=== PATIENT | male | born 1945 | race Caucasian/White ===

== ENCOUNTER → 2018-03-13 09:25 | Outpatient (CLI) | payer MEDICARE, SELFPAY ==
--- NOTE | 2018-03-13 | DI.ECHO.S_ITS ---
[place] [facility]---------+ [facility] +---------+ : : [address] : : : : [id number] : : : : Phone: [phone]+ Echocardiogram Report + + :Name: MARY DELGADO Study Date: 03/13/2018 Height: 69 in : :[facility] Exam Location: IS Weight: 193 lb : : Gender: Male BSA: 2.0 m2 : :: 1945 Age: 72 yrs BP: 118/62 mmHg: :Reason For Study: Atrial Fibrillation : :Ordering Physician: Lea Haywood : :Meron Performed By: Faith Steen : :Referring: LEA CARBAJAL : + + Interpretation Summary The left ventricle is normal in size. Left ventricular systolic function is normal without focal wall motion abnormalities. The ejection fraction is estimated to be 55-60%. LVEF has not changed. Diastolic parameters suggest probable normal left ventricular diastolic function and normal filling pressures. The right ventricle is normal in size and function. Right ventricular systolic pressure is estimated to be at least 29 mmHg plus the clinically estimated CVP which cannot be estimated on this exam. The left atrium is moderately dilated. The right atrium is normal in size. There is mild aortic stenosis which has not changed since 2017. The peak aortic velocity is 2.5 m/sec. There is no other significant valvular heart disease. The ascending aorta is mild-moderately enlarged. Procedure: A two-dimensional transthoracic echocardiogram with color flow and Doppler was performed. The study quality was technically adequate. Comparison is made with the echocardiogram of 05/17/2016. The patient was in normal sinus rhythm during the exam. The patient had frequent PVCs during the exam. Left Ventricle: The left ventricle is normal in size. Left ventricular wall thickness is at the upper limits of normal. Left ventricular systolic function is normal without focal wall motion abnormalities. The ejection fraction is estimated to be 55-60%. Diastolic parameters suggest probable normal left ventricular diastolic function and normal filling pressures. Right Ventricle: The right ventricle is normal in size and function. Atria: The left atrium is moderately dilated. The right atrium is normal in size. Mitral Valve: The mitral valve is normal in structure and function. There is trace mitral regurgitation. Aortic Valve: The aortic valve is trileaflet. The aortic valve is mildly calcified. There is mild aortic stenosis. The aortic valve mean gradient is 14 mmHg. The peak aortic velocity is 2.5 m/sec. There is mild aortic regurgitation. Tricuspid Valve: The tricuspid valve is normal in structure and function. There is mild tricuspid regurgitation. Right ventricular systolic pressure is estimated to be at least 29 mmHg plus the clinically estimated CVP which cannot be estimated on this exam. Pulmonic Valve: The pulmonic valve is normal in structure and function. There is a trace or physiologic amount of pulmonic regurgitation. There is no other significant valvular heart disease. Great Vessels: The ascending aorta is mild-moderately enlarged. The inferior vena cava was not visualized. Pericardium/ Pleura There is no pericardial effusion. There is an anterior echo-free space consistent with a fat pad. There is no pleural effusion. MMode/2D Measurements & Calculations LVIDd: 5.7 cm LVOT diam: 2.1 cm LVIDs: 4.1 cm asc Aorta Diam: 4.0 cm FS: 28.5 % IVSd: 0.78 cm LVPWd: 1.2 cm LV carrington. diameter/BSA (cm/m^2): 2.8 LV sys. diameter/BSA (cm/m^2): 2.0 LA A2 area: 24.9 cm2 RA long axis: 5.0 cm LA A4 area: 27.1 cm2 RA area: 14.3 cm2 LA length (vol): 6.2 cm RA vol: 34.7 ml LA vol: 92.4 ml RA : 17.1 ml/m2 LA vol index: 45.4 ml/m2 RVD1 (basal): 4.1 cm TAPSE: 3.0 cm Doppler Measurements & Calculations Ao V2 max: 244.5 cm/sec LVOT Max Josef: 125.4 cm/sec Ao V2 mean: 176.3 cm/sec LV V1 max P.3 mmHg Ao max P.4 mmHg LV V1 VTI: 25.1 cm Ao mean P.5 mmHg ROMMEL(I,D): 1.7 cm2 Ao V2 VTI: 50.8 cm ROMMEL(V,D): 1.8 cm2 sev ratio: 0.49 ROMMEL indexed to BSA (cm^2/m^2): 0.83 AI P1/2t: 443.8 msec AI dec slope: 261.1 cm/sec2 MV E max josef: 72.1 cm/sec TR max josef: 271.2 cm/sec MV A max josef: 74.2 cm/sec TR max P.4 mmHg MV E/A: 0.97 PA V2 max: 105.3 cm/sec Med Peak E' Josef: 6.8 cm/sec PA V2 mean: 63.0 cm/sec E/E' med: 10.5 PA mean P.9 mmHg Lat Peak E' Josef: 9.2 cm/sec PA pr(Accel): -0.85 mmHg E/E' lat: 7.9 E/e' average: 9.2 MV dec time: 0.18 sec SV(OT): 85.9 ml Reading Physician:03:54 PM
== END ==
PROVIDERS: PCP Family Medicine; Visit Provider Internal Medicine Cardiovascular Disease
DX: I48.0 Paroxysmal atrial fibrillation (principal); I08.2 Rheumatic disorders of both aortic and tricuspid valves; I77.810 Thoracic aortic ectasia
CPT/HCPCS: 93306

== ENCOUNTER → 2019-06-06 09:49 | Outpatient (CLI) | payer MEDICARE, SELFPAY ==
[2019-06-06 11:34] LABS: Add Manual Diff / Slide Review NO; Basophils Absolute Auto 0 /uL (0-100); Basophils Percent Auto 0.5 % (0-2); Eosinophils Absolute Auto 200 /uL (0-450); Eosinophils Percent Auto 2.7 % (2-4); Hematocrit 40.1 % (41-53); Hemoglobin 13.8 g/dL (13.5-17.5); Lymphocytes Absolute Auto 800 /uL (1100-4500); Lymphocytes Percent Auto 9.6 % (25-40); Mean Corpuscular HGB Conc 34.4 % (30-36); Mean Corpuscular Hemoglobin 36.3 PG (26-34); Mean Corpuscular Volume 105.7 fL (80-100); Monocytes Absolute Auto 1100 /uL (0-900); Monocytes Percent Auto 12.5 % (3-14); Neutrophils Absolute Auto 6400 /uL (1500-7000); Neutrophils Percent Auto 74.7 % (50-75); Platelet Count 220 X10^3/uL (150-400); Red Cell Distribution Width 13.5 % (11.6-14.8); White Blood Cell Count 8.6 X10^3/uL (4.5-11.0)
[2019-06-06 12:10] LABS: Alanine Aminotransferase 20 IU/L (<50); Albumin Globulin Ratio 1.5 (1.0-2.8); Alkaline Phosphatase 59 U/L (38-126); Aspartate Aminotransferase 31 IU/L (17-59); BUN Creatinine Ratio 35.8 (6-22); Bilirubin Total 0.5 mg/dL (0.2-1.3); Blood Urea Nitrogen 34 mg/dL (9-20); Calcium 9.6 mg/dL (8.4-10.2); Carbon Dioxide 29 mmol/L (22-32); Chloride 102 mmol/L (98-107); Estimated Glomerular Filt Rate > 60.0 mL/min (>60); Globulin 2.6 g/dL (1.7-4.1); Glucose 97 mg/dL (80-110); HEMOLYSIS < 15 (0-50); Potassium 3.7 mmol/L (3.4-5.1); Sodium 137 mmol/L (137-145); Total Protein 6.6 g/dL (6.3-8.2)
== END ==
PROVIDERS: PCP Family Medicine; Referring Provider Physician Assistant Medical; Visit Provider Physician Assistant Medical
DX: M12.9 Arthropathy, unspecified (principal)
CPT/HCPCS: 36415; 80053; 85025

== ENCOUNTER → 2020-04-10 09:12 | Outpatient (CLI) | payer MEDICARE, SELFPAY ==
--- NOTE | 2020-04-10 09:15 | DI.ECHO.S_ITS ---
[place] [facility]---------+ Hospital +---------+ : : [address] : : : : [id number] : : : : Phone: [phone]---------+ Echocardiogram Report + + :Name: MARY DELGADO Study Date: 04/10/2020 Height: 69 in : :[facility] ReadingLocation: Weight: 196 lb : : Gender: Male BSA: 2.0 m2 : :: 1945 Age: 74 yrs BP: 149/75 mmHg: :Reason For Study: AORTIC STENOSIS : : Performed By: Moises Brown : :Referring: LEA CARBAJAL : + + Interpretation Summary The left ventricle is normal in size.The ejection fraction is estimated to be 55-60%. No significant change in the LVEF from the previous study. Diastolic parameters suggest a pseudonormalization pattern, consistent with probable elevated filling pressures. In comparison to previous study, there is a worsening of diastolic function. The right ventricle is normal in size and function. The peak aortic velocity is 2.66 m/sec. The aortic valve mean gradient is 17.9 mmHg. The calculated aortic valve area is 1.5-1.7 cm2. The peak aortic velocity on the previous exam was 2.5 m/sec. There is mild aortic stenosis. There is mild tricuspid regurgitation. Compared to the prior echo exam, there has been no change in TR severity. The right ventricular systolic pressure is estimated to be at least 24 mmHg based on an estimated right atrial pressure of 3 mm Hg. Procedure: A two-dimensional transthoracic echocardiogram with color flow and Doppler was performed. The study quality was technically adequate. Images from the parasternal window were difficult to obtain and are suboptimal in quality. Comparison is made with the echocardiogram of 03/13/18. The patient was in normal sinus rhythm during the exam. The patient had frequent PVCs during the exam. Left Ventricle: The left ventricle is normal in size. There is normal left ventricular wall thickness. There is no thrombus. The ejection fraction is estimated to be 55-60%. Septal motion is consistent with conduction abnormality. Diastolic parameters suggest a pseudonormalization pattern, consistent with probable elevated filling pressures. Right Ventricle: The right ventricle is normal in size and function. Atria: The left atrium is severely dilated. The left atrium has mildly increased in size since the prior echo exam. Right atrial size is normal. There is no Doppler evidence for an atrial septal defect. Mitral Valve: There is mild to moderate mitral annular calcification. There is a flat closure plane of the the mitral valve leaflets. There is mild mitral regurgitation. Aortic Valve: The aortic valve is not well visualized. The aortic valve is mildly calcified. The peak aortic velocity is 2.66 m/sec. The aortic valve mean gradient is 17.9 mmHg. The peak aortic velocity on the previous exam was 2.5 m/sec. The calculated aortic valve area is 1.5-1.7 cm2. There is mild aortic stenosis. There is trace aortic regurgitation. Tricuspid Valve: The tricuspid valve is normal. There is mild tricuspid regurgitation. The right ventricular systolic pressure is estimated to be at least 24 mmHg based on an estimated right atrial pressure of 3 mm Hg. Compared to the prior echo exam, there has been no change in TR severity. Pulmonic Valve: The pulmonic valve is not well visualized. There is no pulmonic valvular regurgitation. Great Vessels: The aortic root is normal size. The ascending aorta is at the upper limits of normal in size. The aortic arch is at the upper limits of normal in size. The pulmonary artery is normal size. The IVC is of normal diameter and collapses greater than 50% with a sniff. This suggests a low right atrial pressure of 3 mm Hg. Pericardium/ Pleura There is no pericardial effusion. There is no pleural effusion. MMode/2D Measurements & Calculations LVIDd: 4.3 cm LVOT diam: 2.1 cm LVIDs: 2.2 cm Ao root diam: 3.4 cm FS: 48.2 % asc Aorta Diam: 3.8 cm EPSS: 1.4 cm Ao Arch Diam (Prox Trans): 3.4 cm IVSd: 1.0 cm LVPWd: 1.00 cm LV carrington. diameter/BSA (cm/m^2): 2.1 LV sys. diameter/BSA (cm/m^2): 1.1 LA dimension: 3.6 cm RA long axis: 5.3 cm LA A2 area: 31.3 cm2 RA area: 17.4 cm2 LA A4 area: 32.5 cm2 RA vol: 48.6 ml LA length (vol): 6.3 cm RA : 23.8 ml/m2 LA vol: 136.2 ml IVC diam: 1.7 cm LA vol index: 66.5 ml/m2 TAPSE: 2.2 cm Doppler Measurements & Calculations Ao V2 max: 266.9 cm/sec LVOT Max Josef: 111.0 cm/sec Ao V2 mean: 205.1 cm/sec LV V1 max P.9 mmHg Ao max P.5 mmHg LV V1 VTI: 28.3 cm Ao mean P.9 mmHg ROMMEL(I,D): 1.7 cm2 Ao V2 VTI: 58.5 cm ROMMEL(V,D): 1.5 cm2 sev ratio: 0.48 ROMMEL indexed to BSA (cm^2/m^2): 0.85 MV E max josef: 106.7 cm/sec TR max josef: 229.4 cm/sec MV A max josef: 66.1 cm/sec TR max P.0 mmHg MV E/A: 1.6 PA V2 max: 98.5 cm/sec Med Peak E' Josef: 3.9 cm/sec PA V2 mean: 74.2 cm/sec E/E' med: 27.4 PA mean P.4 mmHg Lat Peak E' Josef: 5.6 cm/sec PA pr(Accel): 24.2 mmHg E/E' lat: 19.1 E/e' average: 23.3 MV dec time: 0.15 sec SV(LVOT): 102.1 ml Reading Physician:05:31 PM
== END ==
PROVIDERS: PCP Family Medicine; Referring Provider Internal Medicine Cardiovascular Disease; Visit Provider Internal Medicine Cardiovascular Disease
DX: I08.3 Combined rheumatic disorders of mitral, aortic and tricuspid valves (principal)
CPT/HCPCS: 93306

== ENCOUNTER → 2021-02-11 13:17 | Outpatient (CLI) | payer MEDICARE, SELFPAY ==
--- NOTE | 2021-02-11 13:28 | DI.RAD.S_ITS ---
PROCEDURE: XR CHEST 2V INDICATIONS: MODERATE PERSISTANT COUGH ASTHMA WITHOUT COMPLICATION, COUGH TECHNIQUE: 2 views of the chest were acquired. COMPARISON: [facility], CR, XR CHEST 1 VIEW, 03/12/2020, 11:32. [facility], CT, CT ANGIO CHEST, 06/07/2016, 12:55. [facility], CR, CHEST 1 VIEW, 05/03/2016, 12:56. FINDINGS: Surgical changes and devices: None. Lungs and pleura: A mild streak of opacity can be seen involving the left lung base. No pleural effusions or pneumothorax. Mediastinum: The cardiac contours are within normal limits. The aorta demonstrates calcification and tortuosity. Bones and chest wall: No suspicious bony abnormalities. Mild dextroconvex scoliotic curvature is seen. Accentuated thoracic kyphosis is seen. Age-appropriate bony degenerative changes are seen. Soft tissues appear unremarkable. IMPRESSION: Likely mild atelectasis at the left lung base. Dictated by: Jeremias Russo M.D. on 02/11/2021 at 12:42 Approved by: Jeremias Russo M.D. on 02/11/2021 at 12:44
== END ==
PROVIDERS: PCP Family Medicine; Referring Provider Registered Nurse; Visit Provider Registered Nurse
DX: J45.40 Moderate persistent asthma, uncomplicated (principal); R05.9 Cough, unspecified
CPT/HCPCS: 71046

== ENCOUNTER → 2021-07-08 09:59 | Outpatient (CLI) | payer MEDICARE, SELFPAY ==
--- NOTE | 2021-07-08 | DI.NM.S_ITS ---
PROCEDURE: NM OCTAVIO PERF SPECT REST & STR Rest and exercise myocardial perfusion SPECT with gated imaging and ejection fraction RADIOPHARMACEUTICAL: 24.2 mCi Tc-99m sestamibi IV at rest and 25.6 mCi Tc-99m sestamibi IV at peak exercise. A two day-protocol was performed. INDICATIONS: Chronic diastolic (congestive) heart failure TECHNIQUE: Radiopharmaceutical was injected at peak stress test, and also at rest. SPECT images were obtained. SPECT myocardial perfusion images were displayed in short axis, horizontal long axis, and vertical long axis views. Gated images were reviewed using Secure Software software. COMPARISON: None. CARDIAC STRESS: Patient exercised for 3 minutes and 30 seconds but couldn't keep up with the treadmill. Thus, the study was switched to lexiscan (0.4mg IV dose). Hemodynamic data: There is normal blood pressure and heart rate response to lexiscan. Symptoms: Patient had non-diagnostic chest pain during exercise. EKG: No diagnostic EKG changes of ischemia; occasional PACs and PVCs present. FINDINGS: Raw data: There is good myocardial labeling by radiotracer. No significant motion artifacts. Biif-zm-bduib ratio is 0.37 (normal is less than 0.38 for sestamibi tracer, and less than 0.50 for thallium tracer). Left ventricle function: Gated images demonstrate normal left ventricle wall thickening. No segmental wall motion abnormality. No transient ischemic dilation; TID is 0.81 (normal less than 1.3). The left ventricle resting end-diastolic volume is 121 mL. Left ventricle stress ejection fraction is 69%; normal values are above 45%. Myocardial perfusion: There is normal distribution of activity in the left and right ventricular myocardium. No fixed or reversible perfusion defects. IMPRESSION: Low risk, normal pharmaceutical nuclear stress test 1) No perfusion evidence of ischemia or infarction. 2) Normal left ventricular size, wall motion, and systolic function (EF post stress 69%). 3) No ST changes with exercise or with lexiscan. 4) Non-diagnostic chest pain with exercise. 5) Reduced exercise tolerance (PATRIA +40%). Since target heart rate was not achieved, study was switched to pharmaceutical nuclear stress test. Dictated by: Marcos Ronquillo MD on 07/09/2021 at 16:52 Approved by: Marcos Ronquillo MD on 07/09/2021 at 16:56
[2021-07-08 11:06] LABS: COVID19 -Nasal RAPID Negative (Negative)
== END ==
PROVIDERS: PCP Family Medicine; Referring Provider Internal Medicine Cardiovascular Disease; Visit Provider Internal Medicine Cardiovascular Disease
DX: I50.32 Chronic diastolic (congestive) heart failure (principal); R06.00 Dyspnea, unspecified; R07.9 Chest pain, unspecified
CPT/HCPCS: 78452; 87635; 93017; A9502; J2785

== ENCOUNTER → 2021-07-16 07:46 | Outpatient (CLI) | payer MEDICARE, SELFPAY ==
[2021-07-16 08:32] LABS: COVID19 -Nasal RAPID Negative (Negative)
== END ==
PROVIDERS: PCP Family Medicine; Referring Provider Internal Medicine; Visit Provider Internal Medicine
DX: Z01.812 Encounter for preprocedural laboratory examination (principal); Z20.822 Contact with and (suspected) exposure to COVID-19
CPT/HCPCS: 87635; C9803

== ENCOUNTER → 2021-07-16 07:48 | Outpatient (CLI) | payer MEDICARE, SELFPAY ==
--- NOTE | 2021-07-19 14:04 | PM.PFT.1 ---
Pulmonary Function Test Referral & Results Date Patient Seen: 07/16/21 Requesting provider: Lisbeth Miguel Results: The spirometry demonstrates an FVC of 3.89 L which is 101% of predicted. The FEV1 was measured at 2.44 L which is 88% of predicted. The FEV1/FVC ratio was 63 which is 87% of predicted. Following the administration of bronchodilator there was no notable change. Lung volumes show an SVC of 3.75 L which is 89% of predicted. The diffusing capacity was measured at 20.27 which is 68% of predicted. No hemoglobin value was provided, so no correction for potential anemia could be made, if appropriate. The maximum voluntary ventilation was minimally reduced Interpretation: This study demonstrates probably normal spirometry. There is a moderate reduction diffusing capacity suggesting disease at the capillary alveolar level Compared to PFTs performed in January 2017, current study shows significant decline in diffusing capacity and minimal decline in FEV1 Clinical correlation suggested
== END ==
PROVIDERS: PCP Family Medicine; Referring Provider Internal Medicine Cardiovascular Disease; Visit Provider Internal Medicine Cardiovascular Disease
DX: R06.00 Dyspnea, unspecified (principal); J98.8 Other specified respiratory disorders; A31.0 Pulmonary mycobacterial infection; Z87.891 Personal history of nicotine dependence; Z01.812 Encounter for preprocedural laboratory examination; Z20.822 Contact with and (suspected) exposure to COVID-19
CPT/HCPCS: 87635; 94060; 94726; 94729; C9803

== ENCOUNTER 2021-09-16 00:51 | Emergency (ER) | payer MEDICARE, SELFPAY ==
[2021-09-16] VITALS (8 sets, daily range): BP systolic 107–129; BP diastolic 54–63; PULSE 87–108; RESP 18–20; TEMP 38.3; O2SAT 91–95
--- NOTE | 2021-09-16 00:58 | DI.RAD.S_ITS ---
PROCEDURE: XR CHEST 1V INDICATIONS: SOB TECHNIQUE: One view of the chest was acquired. COMPARISON: [facility], CR, XR CHEST 2V, 02/11/2021, 13:24. FINDINGS: Surgical changes and devices: None. Lungs and pleura: There are patchy left basilar opacities. No pleural effusions or pneumothorax. Mediastinum: Mediastinal contours appear normal. Heart size is normal. Bones and chest wall: No suspicious bony lesions. Overlying soft tissues appear unremarkable. IMPRESSION: 1. Patchy left basilar opacities are nonspecific but suggestive of pneumonia. Dictated by: Dewayne Velazquez M.D. on 09/16/2021 at 2:14 Approved by: Dewayne Velazquez M.D. on 09/16/2021 at 2:14
[2021-09-16] MEDS: SODIUM CHLORIDE 0.9% 1,000 ML 1000 ML IV (01:08)
[2021-09-16 01:10] LABS: Add Manual Diff / Slide Review NO; Basophils Absolute Auto 0 /uL (0-100); Basophils Percent Auto 0.1 % (0-2); Eosinophils Absolute Auto 0 /uL (0-450); Hematocrit 32.3 % (41-53); Hemoglobin 10.7 g/dL (13.5-17.5); Lymphocytes Absolute Auto 300 /uL (1100-4500); Lymphocytes Percent Auto 2.7 % (25-40); Mean Corpuscular HGB Conc 33.2 % (30-36); Mean Corpuscular Hemoglobin 36.1 PG (26-34); Mean Corpuscular Volume 108.8 fL (80-100); Monocytes Absolute Auto 200 /uL (0-900); Monocytes Percent Auto 1.9 % (3-14); Neutrophils Absolute Auto 9700 /uL (1500-7000); Neutrophils Percent Auto 95.3 % (50-75); Platelet Count 199 X10^3/uL (150-400); Red Blood Cell Count 2.97 X10^6/uL (4.5-5.9); Red Cell Distribution Width 18.7 % (11.6-14.8); White Blood Cell Count 10.2 X10^3/uL (4.5-11.0)
[2021-09-16 01:15] LABS: Lactate (Lactic Acid) 3.2 mmol/L (0.7-2.1)
[2021-09-16 01:16] LABS: Alanine Aminotransferase 42 IU/L (<50); Albumin 3.5 g/dL (3.5-5.0); Albumin Globulin Ratio 1.5 (1.0-2.8); Alkaline Phosphatase 57 U/L (38-126); Aspartate Aminotransferase 46 IU/L (17-59); Bilirubin Total 0.5 mg/dL (0.2-1.3); Blood Urea Nitrogen 42 mg/dL (9-20); Calcium 9.1 mg/dL (8.4-10.2); Carbon Dioxide 25 mmol/L (22-32); Chloride 107 mmol/L (98-107); Creatine Kinase 81 U/L (55-170); Estimated Glomerular Filt Rate > 60 mL/min (>60); Globulin 2.3 g/dL (1.7-4.1); Glucose 106 mg/dL (80-110); HEMOLYSIS < 15 (0-50); Potassium 4.3 mmol/L (3.4-5.1); Sodium 138 mmol/L (137-145); Total Protein 5.8 g/dL (6.3-8.2)
[2021-09-16 01:27] LABS: NT-proBNP (BNP-Adult 18+) 986 pg/mL (<450); Troponin I 0.046 ng/mL (0.01-0.034)
[2021-09-16 01:32] LABS: COVID19 -Nasal RAPID Negative (Negative)
[2021-09-16 01:37] LABS: D Dimer 235 ng/mL (<230)
[2021-09-16 02:17] LABS: C-Reactive Protein Quant 4.1 mg/dL (<1.0)
[2021-09-16 03:04] LABS: Reflexed Lactate in 2 Hours Y
--- NOTE | 2021-09-16 03:11 | ED_ITS ---
HPI - Sepsis General Chief Complaint: Upper Respiratory Symptoms Mode of arrival: EMS Source: patient and EMS Limitations: no limitations Evaluation Sepsis Screen: No Definite Risk Sepsis Infection Criteria Present: None Narrative: 76-year-old male with history of paroxysmal atrial fibrillation on Pradaxa and diltiazem as well as chronic pulmonary problems managed by pulmonology (Dr. Kay Hamilton at [facility]) presents by EMS with a chief complaint of shortness of breath along with fever, shaking chills and cough productive of yellow sputum for the past few days. He denies any nausea or vomiting. Denies any chest pain but has felt palpitations and shortness of breath, certainly with exertion. He denies orthopnea, weight gain or lower extremity edema. He denies any abdominal pain, constipation or diarrhea. He states that he had been seen by his rooming house keeper in June and had a bronchoscopy with diagnosis of likely bacterial pneumonia and had been placed on Bactrim DS x5 days Review of Systems Review of Systems Narrative: GENERAL: Denies chills, fatigue, malaise, fever, sweats. HEENT: Denies sinus pain, ear pain, sore throat, difficulty swallowing, dizziness. RESPIRATORY: See HPI CARDIOVASCULAR: See HPI GASTROINTESTINAL: Denies nausea, vomiting, abdominal pain, diarrhea, constipation, melena. : Denies dysuria, frequency, incontinence, hematuria, urinary retention. MUSCULOSKELETAL: denies weakness, joint pain, or bony pain SKIN: Denies rash, skin lesions, or other NEUROLOGIC: Denies weakness, headache, numbness, change in speech, confusion, seizures, incoordination. PSYCHIATRIC: No concerning psychosocial issues. 12 point review of systems is negative except for those stated above Exam Narrative Exam Narrative: GENERAL: [76] year old patient appears stated age. Well-developed patient, in mild distress. HEAD: Atraumatic. Normocephalic. EYES: Pupils equal round and reactive. Extraocular motions intact. No scleral icterus. No injection or drainage. ENT: Nose without bleeding, purulent drainage. Throat without erythema, tons illar hypertrophy or exudate. Airway patent. NECK: Trachea midline. Non tender CARDIOVASCULAR: Tachycardic and irregular rhythm without murmurs, gallops, or rubs. RESPIRATORY: Faint crackles in bilateral bases, no significant work of breathing, no use of accessory muscles GASTROINTESTINAL: Abdomen soft, non-tender, nondistended. EXTREMITIES: No edema or joint tenderness. BACK: Nontender without deformity or crepitance. No flank tenderness. NEURO: AOx3. SKIN: No rash or erythema of visible areas Initial Vital Signs Initial Vital Signs: Vital Signs Pulse Rate 108 H 09/16/21 01:00 Respiratory Rate 19 09/16/21 01:00 Blood Pressure 129/63 09/16/21 01:00 Pulse Oximetry 91 09/16/21 01:00 Oxygen Delivery Method 09/16/21 01:00 Course Orders Ordered: ED Orders 09/16/21 00:58 Chest [XR chest 1V] Stat 09/16/21 01:04 C-Reactive Protein Quant Stat COVID19 -Nasal RAPID/Pre-Proc Stat Complete Blood Count AUTO DIFF Stat Comprehensive Metabolic Panel Stat Lactate (Lactic Acid) Stat Magnesium Stat NT-proBNP (BNP-Adult 18+) Stat Procalcitonin Stat Troponin & CK Cardiac Panel Stat 09/16/21 01:14 D Dimer Stat 09/16/21 01:20 Blood Culture Stat Discontinued Medications Acetaminophen (Acetaminophen 325 Mg Tablet) 975 mg PO NOW ONE Stop: 09/16/21 04:02 Last Admin: 09/16/21 04:07 Dose: 975 mg Documented By: DAVID Sodium Chloride (Normal Saline 0.9%) 1,000 mls @ 1,000 mls/hr IV BOLUS ONE Stop: 09/16/21 01:55 Last Infusion: 09/16/21 02:11 Dose: 0 mls/hr Documented By: Admin: 09/16/21 01:08 Dose: 1,000 mls/hr Documented By: DAVID Ceftriaxone Sodium 2,000 mg/ (Sodium Chloride) 100 mls @ 200 mls/hr IV NOW ONE Stop: 09/16/21 03:13 Last Infusion: 09/16/21 04:37 Dose: 0 mls/hr Documented By: Admin: 09/16/21 03:34 Dose: 200 mls/hr Documented By: DAVID Reevaluation(s) Reevaluation #1: Patient with significant improvement after above-stated therapies, heart rate down into the 90s, no need for supplemental oxygen, Consultations Consultation #1: Discussed with patient's rooming house keeper, she is happy with plan to treat for community acquired pneumonia and has no request for any significantly altered plan given his history. Vital Signs Vital signs: Vital Signs - 8 hr 08/04/22 01:00 09/16/21 01:30 09/16/21 02:47 Temperature Pulse Rate 108 H 100 H 96 H Respiratory Rate 19 18 20 Blood Pressure 129/63 Pulse Oximetry 91 94 95 Oxygen Delivery Method Room Air Room Air Room Air 09/16/21 02:30 09/16/21 02:40 09/16/21 02:40 Temperature 101.0 F H Pulse Rate 94 H 93 H Respiratory Rate 20 18 Blood Pressure 107/54 L 107/54 L Pulse Oximetry 95 94 Oxygen Delivery Method Room Air 09/16/21 03:00 09/16/21 03:30 09/16/21 04:00 Temperature Pulse Rate 90 87 87 Respiratory Rate 20 20 18 Blood Pressure Pulse Oximetry 95 95 94 Oxygen Delivery Method Sepsis Guideline Criteria Level 1 - Infection Sepsis Infection Criteria Present: None Treatment Initiated Antibiotics:: IV antimicrobials will be initiated as soon as possible after recognition of sepsis state and within one hour for both sepsis and septic shock. MDM - Sepsis Lab Data Result diagrams: 09/16/21 01:04 09/16/21 01:04 Labs: Lab Results 09/16/21 09/16/21 09/16/21 Range/Units 01:04 01:04 01:04 WBC 10.2 (4.5-11.0) X10^3/uL RBC 2.97 L (4.5-5.9) X10^6/uL Hgb 10.7 L (13.5-17.5) g/dL Hct 32.3 L (41-53) % MCV 108.8 H (80-100) fL MCH 36.1 H (26-34) PG MCHC 33.2 (30-36) % RDW 18.7 H (11.6-14.8) % Plt Count 199 (150-400) X10^3/uL Neut % (Auto) 95.3 H (50-75) % Lymph % (Auto) 2.7 L (25-40) % Kent % (Auto) 1.9 L (3-14) % Eos % (Auto) 0.0 L (2-4) % Baso % (Auto) 0.1 (0-2) % Neut # (Auto) 9700 H (5506-7871) /uL Lymph # (Auto) 300 L (1542-6565) /uL Kent # (Auto) 200 (0-900) /uL Eos # (Auto) 0 (0-450) /uL Baso # (Auto) 0 (0-100) /uL D-Dimer (<230) ng/mL Sodium 138 (137-145) mmol/L Potassium 4.3 (3.4-5.1) mmol/L Chloride 107 (98-107) mmol/L Carbon Dioxide 25 (22-32) mmol/L BUN 42 H (9-20) mg/dL Creatinine 1.05 (0.66-1.25) mg/dL Estimated GFR > 60 (>60) mL/min BUN/Creatinine Ratio 40.0 H (6-22) Glucose 106 (80-110) mg/dL Lactate 3.2 H (0.7-2.1) mmol/L Calcium 9.1 (8.4-10.2) mg/dL Magnesium 2.0 (1.6-2.3) mg/dL Total Bilirubin 0.5 (0.2-1.3) mg/dL AST 46 (17-59) IU/L ALT 42 (<50) IU/L Alkaline Phosphatase 57 (38-126) U/L Total Creatine Kinase 81 (55-170) U/L CK-MB (CK-2) TNP CK-MB (CK-2) Rel Index TNP Troponin I 0.046 H (0.01-0.034) ng/mL C-Reactive Protein 4.1 H (<1.0) mg/dL NT-Pro-B Natriuret Pep 986 H (<450) pg/mL Total Protein 5.8 L (6.3-8.2) g/dL Albumin 3.5 (3.5-5.0) g/dL Globulin 2.3 (1.7-4.1) g/dL Albumin/Globulin Ratio 1.5 (1.0-2.8) Procalcitonin (<0.5) ng/mL SARS-CoV-2 (PCR) (Negative) 09/16/21 09/16/21 09/16/21 Range/Units 01:04 01:04 01:14 WBC (4.5-11.0) X10^3/uL RBC (4.5-5.9) X10^6/uL Hgb (13.5-17.5) g/dL Hct (41-53) % MCV (80-100) fL MCH (26-34) PG MCHC (30-36) % RDW (11.6-14.8) % Plt Count (150-400) X10^3/uL Neut % (Auto) (50-75) % Lymph % (Auto) (25-40) % Kent % (Auto) (3-14) % Eos % (Auto) (2-4) % Baso % (Auto) (0-2) % Neut # (Auto) (2373-7913) /uL Lymph # (Auto) (2763-4722) /uL Kent # (Auto) (0-900) /uL Eos # (Auto) (0-450) /uL Baso # (Auto) (0-100) /uL D-Dimer 235 H (<230) ng/mL Sodium (137-145) mmol/L Potassium (3.4-5.1) mmol/L Chloride (98-107) mmol/L Carbon Dioxide (22-32) mmol/L BUN (9-20) mg/dL Creatinine (0.66-1.25) mg/dL Estimated GFR (>60) mL/min BUN/Creatinine Ratio (6-22) Glucose (80-110) mg/dL Lactate (0.7-2.1) mmol/L Calcium (8.4-10.2) mg/dL Magnesium (1.6-2.3) mg/dL Total Bilirubin (0.2-1.3) mg/dL AST (17-59) IU/L ALT (<50) IU/L Alkaline Phosphatase (38-126) U/L Total Creatine Kinase (55-170) U/L CK-MB (CK-2) CK-MB (CK-2) Rel Index Troponin I (0.01-0.034) ng/mL C-Reactive Protein (<1.0) mg/dL NT-Pro-B Natriuret Pep (<450) pg/mL Total Protein (6.3-8.2) g/dL Albumin (3.5-5.0) g/dL Globulin (1.7-4.1) g/dL Albumin/Globulin Ratio (1.0-2.8) Procalcitonin 0.20 (<0.5) ng/mL SARS-CoV-2 (PCR) Negative (Negative) 09/16/21 Range/Units 03:00 WBC (4.5-11.0) X10^3/uL RBC (4.5-5.9) X10^6/uL Hgb (13.5-17.5) g/dL Hct (41-53) % MCV (80-100) fL MCH (26-34) PG MCHC (30-36) % RDW (11.6-14.8) % Plt Count (150-400) X10^3/uL Neut % (Auto) (50-75) % Lymph % (Auto) (25-40) % Kent % (Auto) (3-14) % Eos % (Auto) (2-4) % Baso % (Auto) (0-2) % Neut # (Auto) (8262-9229) /uL Lymph # (Auto) (7924-5049) /uL Kent # (Auto) (0-900) /uL Eos # (Auto) (0-450) /uL Baso # (Auto) (0-100) /uL D-Dimer (<230) ng/mL Sodium (137-145) mmol/L Potassium (3.4-5.1) mmol/L Chloride (98-107) mmol/L Carbon Dioxide (22-32) mmol/L BUN (9-20) mg/dL Creatinine (0.66-1.25) mg/dL Estimated GFR (>60) mL/min BUN/Creatinine Ratio (6-22) Glucose (80-110) mg/dL Lactate 1.5 (0.7-2.1) mmol/L Calcium (8.4-10.2) mg/dL Magnesium (1.6-2.3) mg/dL Total Bilirubin (0.2-1.3) mg/dL AST (17-59) IU/L ALT (<50) IU/L Alkaline Phosphatase (38-126) U/L Total Creatine Kinase (55-170) U/L CK-MB (CK-2) CK-MB (CK-2) Rel Index Troponin I (0.01-0.034) ng/mL C-Reactive Protein (<1.0) mg/dL NT-Pro-B Natriuret Pep (<450) pg/mL Total Protein (6.3-8.2) g/dL Albumin (3.5-5.0) g/dL Globulin (1.7-4.1) g/dL Albumin/Globulin Ratio (1.0-2.8) Procalcitonin (<0.5) ng/mL SARS-CoV-2 (PCR) (Negative) Imaging Data Chest x-ray: Radiologist's Impression: ? Chart Viewer Diagnostics Subcategory All Activity ??:?? All Time ??:?? All Subcategories Filter Laboratory Imaging Microbiology Pathology Blood Bank Tests Cardiovascular Other Specialty DATE TYPE STATUS REF RANGE/AUTHOR Hx Today 00:58 Chest X-Ray Signed Dewayne Velazquez 07/16/21 10:48 PFT Result ? 07/08/21 00:00 Myocardial Perfusion Scan Nuc Med Signed Marcos Ronquillo 02/11/21 13:28 Chest X-Ray Signed Jeremias Russo 04/10/20 09:15 Echocardiogram Ultrasound Signed Lisbeth Miguel 03/13/18 00:00 Echocardiogram Ultrasound Signed Billy Christian William L ED 76, M?1945 MRN#? [id number] REG ER,?Main ED??R06?? 82.554kg ? Upper Respiratory Symptoms Acc#? [id number] Resus Status Not Ordered No Hx Avail Special Indicators No Data to Display Home Meds Not Confirmed Prescription Monitoring Program MEDICATIONS (INSTRUCTIONS) LAST TAKEN Active ??dabigatran etexilate [Pradaxa] ??150 [id number] days#0 caps ??diltiazem HCl ??120 [id number] days#0 tabs Allergies Beta-Blockers (Beta-Adrenergic Bloc (BETA-BLOCKERS (BETA-ADRENERGIC BLOC) levofloxacin (LEVOFLOXACIN) Problems ? ONSET PVCs (premature ventricular contractions) Atypical chest pain Palpitations Atrial fibrillation with rapid ventricular response Vital Signs Today 02:47 Pulse 96?H Resp 20? O2 Sat 95? Delivery Room Air? Diagnostics Reports Jonathan Villegas??76??M??1945 ? Allergy/Adv: Beta-Blockers (Beta-Adrenergic Bloc, levofloxacin (More??) Close Chest X-Ray (Signed) Dewayne Velazquez - 09/16/21 PFT Result 07/16/21 Myocardial Perfusion Scan Nuc Med (Signed) Marcos Ronquillo - 07/08/21 Chest X-Ray (Signed) Jeremias Russo - 02/11/21 Echocardiogram Ultrasound (Signed) Lisbeth Miguel - 04/10/20 Echocardiogram Ultrasound (Signed) Billy Christian - 03/13/18 Launch?Image [address] [address] XRay Report Signed Patient: Jonathan Villegas MR#: [id number] : 1945 Acct:[id number] Age/Sex: 76 / M Date of Service: 09/16/21 Loc: ED Accession Number: [id number] ?? Procedure: XR chest 1V Ordering Provider: Dave Bacbock D.O. PROCEDURE:? XR CHEST 1V ? INDICATIONS:? SOB ? TECHNIQUE:? One view of the chest was acquired.? ? COMPARISON:? [facility], CR, XR CHEST 2V, 02/11/2021, 13:24. ? FINDINGS:? ? Surgical changes and devices:? None.? ? Lungs and pleura:? There are patchy left basilar opacities.? No pleural effusions or pneumothorax.? ? Mediastinum:? Mediastinal contours appear normal.? Heart size is normal.? ? Bones and chest wall:? No suspicious bony lesions.? Overlying soft tissues appear unremarkable.? ? IMPRESSION:? ? 1. Patchy left basilar opacities are nonspecific but suggestive of pneumonia. ? ? Dictated by: Dewayne Velazquez M.D. on 09/16/2021 at 2:14 ? ? Approved by: Dewayne Velazquez M.D. on 09/16/2021 at 2:14 ? Discharge Plan Departure Patient Disposition: Home Clinical Impression: Community acquired pneumonia Instructions: DI for Pneumonia -- Adult Activity Restrictions/Additional Instructions: *You have been diagnosed with [community-acquired pneumonia] *What to do: *Please continue to take your regular medications as directed. [ x] New medication prescriptions sent to your pharmacy: [ [facility]] [ ] New medication written as a paper prescription [ ] No new medications given *Please follow up with your primary care provider in 2-3 days, call for an appointment. Let them know you were seen in the Emergency Department and that we ask that you be seen in follow up. We will electronically transmit a record of today's note if your PCP is in our system *If you do not have a primary care provider please contact the [facility] Resource line at [phone]. They will ask some questions about your medical history and help get you set up with a doctor in the community. *Return to Emergency Department if you should have any new, worsening or concerning symptoms, such as [fever greater than 101 F, shaking chills, worsening pain, persistent vomiting or other bothersome symptoms] Prescriptions: New amoxicillin 500 mg capsule 1,000 mg PO Q8H 5 Days Qty: 30 0RF No Action diltiazem HCl 120 MG capsule,extended release 24hr 120 mg PO QDAY 30 Days Qty: 0 0RF dabigatran etexilate [Pradaxa] 150 MG capsule 150 mg PO BID 30 Days Qty: 0 0RF Referrals: Ilya Liang MD [Primary Care Provider] -
[2021-09-16 03:21] LABS: Lactate 2HR (Lactic Acid Rflx) 1.5 mmol/L (0.7-2.1)
[2021-09-16] MEDS: cefTRIAXone 2,000 MG in SODIUM CHLORIDE 0.9% 100 ML 200 MG IV (03:34)
[2021-09-16] MEDS: ACETAMINOPHEN 325 MG TABLET 975 MG PO (04:07)
== END 2021-09-16 05:00 | disposition home or self-care (01) ==
PROVIDERS: Emergency Provider Emergency Medicine; PCP Family Medicine
DX: J18.9 Pneumonia, unspecified organism (principal); R50.9 Fever, unspecified; Z20.822 Contact with and (suspected) exposure to COVID-19
CPT/HCPCS: 36415; 71045; 80053; 82550; 83605; 83735; 83880; 84145; 84484; 85025; 85379; 86140; 87040; 87635; 96361; 96365; 99284; C9803; J0696

== ENCOUNTER 2023-05-19 18:23 | Emergency (ER) | payer MEDICARE, SELFPAY ==
[2023-05-19] VITALS (18 sets, daily range): BP systolic 87–125; BP diastolic 51–67; PULSE 63–80; RESP 13–29; TEMP 36.8; O2SAT 93–97; BMI 29.6
--- NOTE | 2023-05-19 18:36 | DI.RAD.S_ITS ---
PROCEDURE: XR CHEST 1V INDICATIONS: syncope TECHNIQUE: One view of the chest was acquired. COMPARISON: [facility], CT, CT CHEST WITH CONTRAST, 05/15/2023, 20:45. , CR, XR CHEST 1V, 09/16/2021, 1:34. FINDINGS: Surgical changes and devices: None. Lungs and pleura: Lungs are clear. No pleural effusions or pneumothorax. Mediastinum: Mediastinal contours appear normal. 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 Heart size is normal. Bones and chest wall: No suspicious bony lesions. Overlying soft tissues appear unremarkable. IMPRESSION: No acute cardiopulmonary abnormality is seen. Dictated by: Uday aPcheco M.D. on 05/19/2023 at 19:03 Approved by: Uday Pacheco M.D. on 05/19/2023 at 19:04
--- NOTE | 2023-05-19 18:37 | ED.SYNCOPE ---
HPI - Syncope General Chief Complaint: Syncope Stated Complaint: Syncope Time Seen by Provider: 05/19/23 18:26 Source: patient and EMS Mode of arrival: EMS Limitations: no limitations History of Present Illness HPI narrative: 78-year-old male with history of paroxysmal atrial fibrillation on Tikosyn and Eliquis, history of aortic stenosis status post TAVR presents by EMS from home for multiple syncopal episodes. Patient discharged less than 24 hours from [facility] for shortness of breath. He was found to have very mildly elevated troponins and volume overload. Patient had his medications changed from diltiazem 242 metoprolol succinate 100 mg b.i.d. and started on lasix. This afternoon patient felt very shaky and seemed to have multiple syncopal episodes, especially when he changed positions. EMS noted that when they arrived patient had BP 70s/50s. They administered 250 cc of IV fluids and transported him to the emergency department. Related Data Previous Rx's Medication Instructions Recorded dabigatran etexilate 150 mg 150 mg PO BID 30 days #0 caps 05/03/16 capsule (Pradaxa) diltiazem HCl 120 mg 120 mg PO QDAY 30 days #0 tabs 05/03/16 capsule,extended release 24 hr Allergies Allergy/AdvReac Type Severity Reaction Status Date / Time levofloxacin [LEVOFLOXACIN] Allergy Severe Rash Verified 05/19/23 19:40 Beta-Blockers Allergy Intermediate Verified 05/19/23 19:40 (Beta-Adrenergic Bloc [BETA-BLOCKERS (BETA-ADRENERGIC BLOC] midazolam [From Versed] Allergy Intermediate Confusion Verified 05/19/23 19:39 Review of Systems Review of Systems Narrative: see HPI Patient History Social History Smoking Status: Former smoker Smoking Status: Former smoker alcohol intake frequency: a few times a month Substance Use Type: marijuana Exam Initial Vital Signs Initial Vital Signs: Vital Signs Temperature 98.2 F 05/19/23 18:31 Pulse Rate 80 05/19/23 18:31 Respiratory Rate 18 05/19/23 18:31 Blood Pressure 106/59 L 05/19/23 18:31 Pulse Oximetry 95 05/19/23 18:31 Oxygen Delivery Method Room Air 05/19/23 18:31 Const: Awake, alert, fatigued, nontoxic appearance Cardiac: regular rate, regular rhythm RESP: unlabored, clear bilaterally, no wheezing GI: Soft, nontender, nondistended, no rebound, no guarding MSK: Atraumatic, full range of motion, no edema Skin: Warm, Dry, intact, no rashes Neuro: AO x3, CN II-XII grossly intact, moves all extremities Course Orders Ordered: Discontinued Medications Sodium Chloride (Normal Saline 0.9%) 500 mls @ 1,000 mls/hr IV BOLUS ONE Stop: 05/19/23 19:56 Last Infusion: 05/19/23 19:35 Dose: Infused Documented By: Admin: 05/19/23 19:00 Dose: 1,000 mls/hr Documented By: ASH Vital Signs Vital signs: Vital Signs - 8 hr 05/19/23 18:31 05/19/23 18:34 05/19/23 19:00 Temperature 98.2 F Pulse Rate 80 71 Pulse Rate [Orthostatic Lying] Pulse Rate [Orthostatic Sitting] Pulse Rate [Orthostatic Standing] Respiratory Rate 18 15 Blood Pressure 106/59 L 97/58 L Blood Pressure [Orthostatic Lying] Blood Pressure [Orthostatic Sitting] Blood Pressure [Orthostatic Standing] Pulse Oximetry 95 95 Oxygen Delivery Method Room Air Room Air 05/19/23 19:00 05/19/23 19:19 05/19/23 19:19 Temperature Pulse Rate 71 69 Pulse Rate [Orthostatic Lying] Pulse Rate [Orthostatic Sitting] Pulse Rate [Orthostatic Standing] Respiratory Rate 14 15 Blood Pressure 98/62 Blood Pressure [Orthostatic Lying] Blood Pressure [Orthostatic Sitting] Blood Pressure [Orthostatic Standing] Pulse Oximetry 93 93 Oxygen Delivery Method 05/19/23 19:21 05/19/23 19:21 05/19/23 19:25 Temperature Pulse Rate 70 Pulse Rate [Orthostatic Lying] 69 Pulse Rate [Orthostatic Sitting] 70 Pulse Rate [Orthostatic Standing] 79 Respiratory Rate 15 Blood Pressure 99/62 Blood Pressure [Orthostatic Lying] 99/62 Blood Pressure [Orthostatic Sitting] 106/64 Blood Pressure [Orthostatic Standing] 87/51 L Pulse Oximetry 94 Oxygen Delivery Method 05/19/23 19:25 05/19/23 19:25 05/19/23 19:26 Temperature Pulse Rate 71 80 Pulse Rate [Orthostatic Lying] Pulse Rate [Orthostatic Sitting] Pulse Rate [Orthostatic Standing] Respiratory Rate 21 20 Blood Pressure 106/64 Blood Pressure [Orthostatic Lying] Blood Pressure [Orthostatic Sitting] Blood Pressure [Orthostatic Standing] Pulse Oximetry 94 95 Oxygen Delivery Method 05/19/23 19:26 05/19/23 19:30 05/19/23 19:30 Temperature Pulse Rate 65 Pulse Rate [Orthostatic Lying] Pulse Rate [Orthostatic Sitting] Pulse Rate [Orthostatic Standing] Respiratory Rate 24 Blood Pressure 87/51 L 121/67 Blood Pressure [Orthostatic Lying] Blood Pressure [Orthostatic Sitting] Blood Pressure [Orthostatic Standing] Pulse Oximetry 96 Oxygen Delivery Method 05/19/23 20:00 05/19/23 20:00 05/19/23 20:30 Temperature Pulse Rate 66 Pulse Rate [Orthostatic Lying] Pulse Rate [Orthostatic Sitting] Pulse Rate [Orthostatic Standing] Respiratory Rate Blood Pressure 101/60 104/62 Blood Pressure [Orthostatic Lying] Blood Pressure [Orthostatic Sitting] Blood Pressure [Orthostatic Standing] Pulse Oximetry 94 Oxygen Delivery Method Room Air 05/19/23 20:30 05/19/23 21:00 05/19/23 21:00 Temperature Pulse Rate 64 67 Pulse Rate [Orthostatic Lying] Pulse Rate [Orthostatic Sitting] Pulse Rate [Orthostatic Standing] Respiratory Rate Blood Pressure 111/66 Blood Pressure [Orthostatic Lying] Blood Pressure [Orthostatic Sitting] Blood Pressure [Orthostatic Standing] Pulse Oximetry 93 96 Oxygen Delivery Method Room Air Room Air 05/19/23 21:19 05/19/23 21:19 05/19/23 21:21 Temperature Pulse Rate 71 Pulse Rate [Orthostatic Lying] Pulse Rate [Orthostatic Sitting] Pulse Rate [Orthostatic Standing] Respiratory Rate Blood Pressure 109/65 104/64 Blood Pressure [Orthostatic Lying] Blood Pressure [Orthostatic Sitting] Blood Pressure [Orthostatic Standing] Pulse Oximetry 96 Oxygen Delivery Method 05/19/23 21:21 05/19/23 21:23 05/19/23 21:23 Temperature Pulse Rate 74 79 Pulse Rate [Orthostatic Lying] Pulse Rate [Orthostatic Sitting] Pulse Rate [Orthostatic Standing] Respiratory Rate 17 29 H Blood Pressure 94/57 L Blood Pressure [Orthostatic Lying] Blood Pressure [Orthostatic Sitting] Blood Pressure [Orthostatic Standing] Pulse Oximetry 93 Oxygen Delivery Method 05/19/23 21:26 05/19/23 21:30 05/19/23 21:30 Temperature Pulse Rate 67 Pulse Rate [Orthostatic Lying] 70 Pulse Rate [Orthostatic Sitting] 78 Pulse Rate [Orthostatic Standing] 78 Respiratory Rate Blood Pressure 125/61 Blood Pressure [Orthostatic Lying] 109/64 Blood Pressure [Orthostatic Sitting] 104/64 Blood Pressure [Orthostatic Standing] 94/57 L Pulse Oximetry 95 Oxygen Delivery Method Room Air 05/19/23 22:00 05/19/23 22:00 05/19/23 22:30 Temperature Pulse Rate 66 Pulse Rate [Orthostatic Lying] Pulse Rate [Orthostatic Sitting] Pulse Rate [Orthostatic Standing] Respiratory Rate 13 Blood Pressure 111/66 108/66 Blood Pressure [Orthostatic Lying] Blood Pressure [Orthostatic Sitting] Blood Pressure [Orthostatic Standing] Pulse Oximetry 97 Oxygen Delivery Method Room Air 05/19/23 22:30 Temperature Pulse Rate 63 Pulse Rate [Orthostatic Lying] Pulse Rate [Orthostatic Sitting] Pulse Rate [Orthostatic Standing] Respiratory Rate 13 Blood Pressure Blood Pressure [Orthostatic Lying] Blood Pressure [Orthostatic Sitting] Blood Pressure [Orthostatic Standing] Pulse Oximetry 94 Oxygen Delivery Method Room Air MDM - Syncope Differential Diagnosis Differential diagnosis: Likely syncope due to orthostatic hypotension, vasovagal syncope and dehydration Lab Data 05/19/23 18:30 05/19/23 18:30 Labs: Lab Results 05/19/23 05/19/23 Range/Units 18:30 20:38 WBC 11.2 H (4.5-11.0) X10^3/uL RBC 3.36 L (4.5-5.9) X10^6/uL Hgb 11.5 L (13.5-17.5) g/dL Hct 34.2 L (41-53) % MCV 101.7 H (80-100) fL MCH 34.3 H (26-34) PG MCHC 33.7 (30-36) % RDW 15.3 H (11.6-14.8) % Plt Count 154 (150-400) X10^3/uL Neut % (Auto) 87.3 H (50-75) % Lymph % (Auto) 7.3 L (25-40) % [place] % (Auto) 5.1 (3-14) % Eos % (Auto) 0.0 L (2-4) % Baso % (Auto) 0.3 (0-2) % Neut # (Auto) 9800 H (3294-3598) /uL Lymph # (Auto) 800 L (0229-0422) /uL [place] # (Auto) 600 (0-900) /uL Eos # (Auto) 0 (0-450) /uL Baso # (Auto) 0 (0-100) /uL RBC Morphology See below Polychromasia 1+ H Anisocytosis 1+ H Microcytosis 1+ H Macrocytosis 1+ H Rouleaux 1+ H PT 13.9 H (9.4-12.5) SECONDS INR 1.2 (0.9-1.3) Sodium 133 L (137-145) mmol/L Potassium 5.1 (3.4-5.1) mmol/L Chloride 104 (98-107) mmol/L Carbon Dioxide 20 L (22-32) mmol/L BUN 64 H (9-20) mg/dL Creatinine 1.62 H (0.66-1.25) mg/dL Estimated GFR 43 L (>60) mL/min BUN/Creatinine Ratio 39.5 H (6-22) Glucose 107 (80-110) mg/dL Calcium 9.1 (8.4-10.2) mg/dL Total Bilirubin 0.9 (0.2-1.3) mg/dL AST 95 H (17-59) IU/L ALT 87 H (<50) IU/L Alkaline Phosphatase 60 (38-126) U/L Total Creatine Kinase 77 (55-170) U/L Troponin I 0.067 H 0.050 H (0.01-0.034) ng/mL NT-Pro-B Natriuret Pep 1410 H (<450) pg/mL Total Protein 7.0 (6.3-8.2) g/dL Albumin 3.7 (3.5-5.0) g/dL Globulin 3.3 (1.7-4.1) g/dL Albumin/Globulin Ratio 1.1 (1.0-2.8) Imaging Data Chest x-ray: Radiologist's Impression: PROCEDURE: XR CHEST 1V INDICATIONS: syncope TECHNIQUE: One view of the chest was acquired. COMPARISON: [facility], CT, CT CHEST WITH CONTRAST, 05/15/2023, 20:45. [facility], CR, XR CHEST 1V, 09/16/2021, 1:34. FINDINGS: Surgical changes and devices: None. Lungs and pleura: Lungs are clear. No pleural effusions or pneumothorax. Mediastinum: Mediastinal contours appear normal. 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 Heart size is normal. Bones and chest wall: No suspicious bony lesions. Overlying soft tissues appear unremarkable. IMPRESSION: No acute cardiopulmonary abnormality is seen. Dictated by: Uday Pacheco M.D. on 05/19/2023 at 19:03 Approved by: Uday Pacheco M.D. on 05/19/2023 at 19:04 MDM Narrative Medical decision making narrative: Multiple syncopal versus near syncopal episodes after being discharged from [facility] barely 24 hours ago. at bedside is a retired pharmacist who mentions that the patient has had numerous medication changes within the last several days including stopping diltiazem and adding metoprolol, stopping spironolactone and adding Lasix, and adding losartan. Patient states that he was told that he had a ?mild heart attack?, but then also states that he had a clean angiogram 1 year ago. We will pull records from [facility] for review. Of note, patient is very orthostatic with dizziness in switching positions. Suspect that polypharmacy and maybe some hypovolemia may be contributing to patient's presentation Laboratory work is reviewed, hemoglobin 11.5, platelets 154, sodium 133, potassium 5.1, creatinine 1.62, troponin 0.067, BNP 1410. When compared to [facility] values from 24 hours ago these are not significantly changed. Patient appears to have mild troponin leak that is stable between today and his previous hospital stay. Patient received small bolus of IV fluids and was able to stand and ambulate with a walker without difficulty, which is his baseline. Patient counseled to decrease his metoprolol dose and to follow up with his calender tender. With the Lasix is also important that patient monitor his salt and fluid intake. Strict ED return precautions discussed with both patient and at bedside. Discharge Plan Departure Patient Disposition: Home Clinical Impression: Orthostatic dizziness Instructions: DI for Orthostatic Hypotension Activity Restrictions/Additional Instructions: I recommend decreasing her metoprolol dose from 100 mg twice daily to 50 mg twice daily. Monitor your fluid intake and salt intake. Please return if you do not notice an improvement in your symptoms despite medication changes. Follow up with your heart doctor and primary care doctor. Prescriptions: No Action diltiazem HCl 120 MG capsule,extended release 24hr 120 mg PO QDAY 30 Days Qty: 0 0RF dabigatran etexilate [Pradaxa] 150 MG capsule 150 mg PO BID 30 Days Qty: 0 0RF Referrals: Ilya Liang MD [Primary Care Provider] - Stand Alone Forms: Patient Portal/API
[2023-05-19 18:46] LABS: Basophils Absolute Auto 0 /uL (0-100); Basophils Percent Auto 0.3 % (0-2); Eosinophils Absolute Auto 0 /uL (0-450); Mean Corpuscular Volume 101.7 fL (80-100); White Blood Cell Count 11.2 X10^3/uL (4.5-11.0)
[2023-05-19 18:52] LABS: INR 1.2 (0.9-1.3); Prothrombin Time 13.9 SECONDS (9.4-12.5)
[2023-05-19 18:53] LABS: Hematocrit 34.2 % (41-53); Hemoglobin 11.5 g/dL (13.5-17.5); Lymphocytes Absolute Auto 800 /uL (1100-4500); Lymphocytes Percent Auto 7.3 % (25-40); Mean Corpuscular HGB Conc 33.7 % (30-36); Mean Corpuscular Hemoglobin 34.3 PG (26-34); Monocytes Absolute Auto 600 /uL (0-900); Monocytes Percent Auto 5.1 % (3-14); Neutrophils Absolute Auto 9800 /uL (1500-7000); Neutrophils Percent Auto 87.3 % (50-75); Platelet Count 154 X10^3/uL (150-400); Red Blood Cell Count 3.36 X10^6/uL (4.5-5.9); Red Cell Distribution Width 15.3 % (11.6-14.8)
[2023-05-19 18:56] LABS: Alanine Aminotransferase 87 IU/L (<50); Albumin 3.7 g/dL (3.5-5.0); Albumin Globulin Ratio 1.1 (1.0-2.8); Alkaline Phosphatase 60 U/L (38-126); Aspartate Aminotransferase 95 IU/L (17-59); BUN Creatinine Ratio 39.5 (6-22); Bilirubin Total 0.9 mg/dL (0.2-1.3); Blood Urea Nitrogen 64 mg/dL (9-20); Calcium 9.1 mg/dL (8.4-10.2); Carbon Dioxide 20 mmol/L (22-32); Chloride 104 mmol/L (98-107); Creatine Kinase 77 U/L (55-170); Estimated Glomerular Filt Rate 43 mL/min (>60); Globulin 3.3 g/dL (1.7-4.1); Glucose 107 mg/dL (80-110); HEMOLYSIS 15 (0-50); Potassium 5.1 mmol/L (3.4-5.1); Sodium 133 mmol/L (137-145)
[2023-05-19] MEDS: SODIUM CHLORIDE 0.9% 500 ML 1000 ML IV (19:00)
[2023-05-19 19:07] LABS: NT-proBNP (BNP-Adult 18+) 1410 pg/mL (<450); Troponin I 0.067 ng/mL (0.01-0.034)
[2023-05-19 19:09] LABS: Add Manual Diff / Slide Review SLIDE REVIEW
[2023-05-19 19:10] LABS: Anisocytosis 1+; Macrocytosis 1+; Microcytosis 1+; Polychromasia 1+; Rouleaux 1+
--- NOTE | 2023-05-19 19:10 | PC.NURSE ---
pt states that when he had a near syncopal event, he felt confused at the time. took a few minutes to focus. pt is AAOX4 in ER.
--- NOTE | 2023-05-19 21:42 | PC.NURSE ---
Pt states he did feel very dizzy and is concerned about falling when going home. MD aware. Will reassess ambulation later.
== END 2023-05-19 23:26 | disposition home or self-care (01) ==
PROVIDERS: Emergency Provider Emergency Medicine; PCP Family Medicine
DX: I95.1 Orthostatic hypotension (principal); R07.9 Chest pain, unspecified
CPT/HCPCS: 36415; 71045; 80053; 82550; 83880; 84484; 85025; 85610; 93005; 96360; 99284

== ENCOUNTER → 2023-06-21 15:21 | Outpatient (CLI) | payer MEDICARE, SELFPAY ==
[2023-06-21 16:32] LABS: Hematocrit 32.1 % (41-53); Hemoglobin 10.6 g/dL (13.5-17.5); Mean Corpuscular HGB Conc 33.1 % (30-36); Mean Corpuscular Hemoglobin 34.8 PG (26-34); Mean Corpuscular Volume 105.1 fL (80-100); Platelet Count 189 X10^3/uL (150-400); Red Blood Cell Count 3.06 X10^6/uL (4.5-5.9); Red Cell Distribution Width 17.1 % (11.6-14.8); White Blood Cell Count 11.5 X10^3/uL (4.5-11.0)
[2023-06-21 17:23] LABS: Blood Urea Nitrogen 34 mg/dL (9-20); Carbon Dioxide 22 mmol/L (22-32); Chloride 109 mmol/L (98-107); Estimated Glomerular Filt Rate > 60 mL/min (>60); Glucose 111 mg/dL (80-110); HEMOLYSIS < 15 (0-50); Potassium 4.6 mmol/L (3.4-5.1); Sodium 136 mmol/L (137-145)
[2023-06-21 17:30] LABS: NT-proBNP (BNP-Adult 18+) 2340 pg/mL (<450)
== END ==
PROVIDERS: Internal Medicine Cardiovascular Disease; PCP Family Medicine Sports Medicine; Referring Provider Family Medicine Sports Medicine; Visit Provider Family Medicine Sports Medicine
DX: I50.32 Chronic diastolic (congestive) heart failure (principal); R06.09 Other forms of dyspnea
CPT/HCPCS: 36415; 80048; 83880; 85027

== ENCOUNTER 2023-08-24 13:45 | Outpatient (RCR) | payer MEDICARE, SELFPAY ==
--- NOTE | 2023-08-02 18:47 | PT.OIE ---
Addendum entered and electronically signed by Kirsty Palacio PT 08/03/23 08:18: PT direct supervision and direction to student PT Austin Eaton throughout session Original Note: Current Diagnoses Other abnormalities of gait and mobility (08/02/23) Other symptoms and signs involving the musculoskeletal system (08/02/23) Visit Care Team Role Provider Type Nomi Peoples MD Attending Provider Non-Staff Family Provider Primary Care Provider Referring Provider Specialty: Family Practice Address: [address] [place] [address], [id number] Email: Physical Therapy Initial Evaluation PT-OP-A Visit Information Start: 07/27/23 17:35 Freq: Status: Active Protocol: Document 08/02/23 16:09 JG (Rec: 08/02/23 17:35 JG [id number]) Out-Patient Physical Therapy Visit Information Visit Information Visit Type Initial Evaluation Visit Start Time 16:05 Visit Stop Time 16:51 Visit Number 1 Number of AGRICULTURAL MECHANIC Visits 0 PT-OP-B Current Condition Start: 07/27/23 17:35 Freq: Status: Active Protocol: Document 08/02/23 16:09 JG (Rec: 08/02/23 16:55 [id number]) Current Condition History of Current Condition History of Current Condition End of April 2023, pt had a mild N-STEMI and afterwards he was only able to walk short distances for 30 days. Pt is unable to currently walk upstairs and has 2 steps to enter home. He is able to do all ADL's and stay on first floor of home. His home is equipt with a walk in shower, shower seat and raised toilot. He has a history of RA and has been wearing a R AFO for 3 years. His reports that BP has been fluctuating since the N-STEMI. Pt was using a cane around the home and when walking around the block for safty prior to the heart attack but now uses a 4WW to get around. Pt reports that the day before the heart attack he had an achilies rupture and felt like balance was good before that point. PT-OP-C Subjective Start: 07/27/23 17:35 Freq: Status: Active Protocol: Document 08/02/23 16:09 JG (Rec: 08/02/23 17:36 J [id number]) OP-PT Subjective Patient Comments Patient Reported Progress Same Patient Questionnaires Other Questionnaire Name and Score Falls Efficacy Scale 44/64 PT-OP-D Balance Start: 07/27/23 17:35 Freq: Status: Active Protocol: Document 08/02/23 16:09 JG (Rec: 08/02/23 17:38 J [id number]) Balance Tests Horvath Balance Test Horvath Balance Test Score 23/56 PT-OP-E Functional Tests Start: 07/27/23 17:35 Freq: Status: Active Protocol: Document 08/02/23 16:09 JG (Rec: 08/02/23 17:46 [id number]) Functional Tests 30 Second Sit to Stand Test Score 3 Comments Pt had to use arms for support and back of legs were touching PT-OP-G Mobility & Gait Start: 07/27/23 17:35 Freq: Status: Active Protocol: Document 08/02/23 16:09 JG (Rec: 08/02/23 17:52 [id number]) OP Gait Assessment Assistive Devices Assistive Device 4 Wheeled Walker Orthotic/Prosthetic Devices or Brace: Yes Gait Deviations General Gait Pattern Decreased Stride Length, Decreased Feet Clearance, Flexed Trunk Comments Gait Comments R AFO. After testing, BP checked seated: 157/94, HR 92, SPO2 96% PT-OP-T Assessment and Plan Start: 07/27/23 17:35 Freq: Status: Active Protocol: Document 08/02/23 16:09 JG (Rec: 08/02/23 17:46 [id number]) Physical Therapy Assessment Rehab Potential Rehabilitation Potential Fair Evaluation Complexity Number of Personal Factors/Comorbidities 3 or More Number of Body Systems Impaired 4 or More Clinical Presentation at Evaluation Unstable Goals Horvath Short Term Goal (STG) Pt will increase horvath balance score from a 23/56 to a 35/56 to safely ambulate with an AD STG Duration 08/23/23 Business Planning Manager Goal (LTG) Pt will increase horvath balance score from a 23/56 to a 45/56 to safely ambulate with no AD and have the ability to ambulate outdoors and in the community safely LTG Duration 10/25/23 Stairs Short Term Goal (STG) Pt will be able to ascend and decend second floor steps with an AD and rail with SBA in order to improve exercise tolerance and have the ability to access entire home STG Duration 08/23/23 Residential Goal (LTG) Pt will be able to ascend and decend one full story safely and efficently with railing I LTG Duration 10/25/23 Walk Short Term Goal (STG) Pt will be able to walk short distances (25 ft) with a SPC in order to improve tolerance and move around home more efficently STG Duration 08/23/23 Residential Goal (LTG) Pt will be able to walk longer distances (100 ft) w/o AD in order to improve tolerance and move around home more efficently LTG Duration 10/04/23 Assessment Summary Assessment Pt is a 78 y/o male that presnets with syncope, SOB and balance issues following a N- STEMI and achillies rupture that occured in April. Pt is currently using a 4WW and is unsteady with gait and balance activities. This may be contributed to the achillies rupture, SOB, RA and heart attacks. He is unable to stay standing w/o SOB for more then 1 min. and is a serious risk for falls 23/56 on BBS. He also scored 44/64 on the Falls Efficancy Scale. He does not lock his 4WW when sitting down contributing to increase fall risk. Pt is motivated to start physical therapy and is willing to do what it takes for as long as it takes to get better. Pt is a serious fall risk will benefit from skilled phyical therapy consisting of home set-up, gait and balance training, fall prevention and education of BP and self monitoring when at home. Pt is recommeneded to come to PT x2 per week for 12 weeks. Physical Therapy Plan Frequency and Duration Frequency of Treatment 2x/Week Duration of treatment (weeks) 12 Plan of Care Start Date 08/02/23 Plan of Care End Date 10/25/23 Therapeutic Interventions Therapeutic Interventions Balance Training,Coordination Training,Gait Training,Home Exercise Program,Joint Mobilizations,Manual Therapy, Neuromuscular Re-education, Orthotic/Prosthetic Management ,Patient/Caregiver Education, Self-Care/Home Management, Sensory Integration,Soft Tissue Mobilization,Taping, Therapeutic Activities, Therapeutic Exercises, Vestibular Rehabilitation Modalities Biofeedback,Cold Pack/Ice Massage,Electric Stimulation, Hot Packs,Infrared Therapy, Traction- Mechanical, Ultrasound Next Visit Focus/Plan Next Note Type Treatment Note Next Visit Plan Focus on balance training and standing endurance, breathing techniques, WBOS, gait training with walker progress to using railing.
--- NOTE | 2023-08-07 12:27 | PT.OTN ---
Current Diagnoses Other abnormalities of gait and mobility (08/07/23) Other symptoms and signs involving the musculoskeletal system (08/07/23) Physical Therapy Treatment Note PT-OP-A Visit Information Start: 07/27/23 17:35 Freq: Status: Active Protocol: Document 08/07/23 11:14 [facility] (Rec: 08/07/23 12:27 [facility] [id number]) Out-Patient Physical Therapy Visit Information Visit Information Visit Type Treatment Note Visit Note 03/25 Visit Start Time 11:15 Visit Stop Time 12:00 Visit Number 2 Number of MARRIAGE COUNSELOR MINISTER Visits 0 PT-OP-B Current Condition Start: 07/27/23 17:35 Freq: Status: Active Protocol: Document 08/02/23 16:09 JG (Rec: 08/02/23 16:55 JG [id number]) Current Condition History of Current Condition History of Current Condition End of April 2023, pt had a mild N-STEMI and afterwards he was only able to walk short distances for 30 days. Pt is unable to currently walk upstairs and has 2 steps to enter home. He is able to do all ADL's and stay on first floor of home. His home is equipt with a walk in shower, shower seat and raised toilot. He has a history of RA and has been wearing a R AFO for 3 years. His reports that BP has been fluctuating since the N-STEMI. Pt was using a cane around the home and when walking around the block for safty prior to the heart attack but now uses a 4WW to get around. Pt reports that the day before the heart attack he had an achilies rupture and felt like balance was good before that point. PT-OP-C Subjective Start: 07/27/23 17:35 Freq: Status: Active Protocol: Document 08/07/23 11:14 [facility] (Rec: 08/07/23 12:27 [facility] [id number]) OP-PT Subjective Patient Comments Patient Comments pt brings handouts of exercises from PT PT-OP-D Balance Start: 07/27/23 17:35 Freq: Status: Active Protocol: Document 08/02/23 16:09 JG (Rec: 08/02/23 17:38 JG [id number]) Balance Tests Long Balance Test Long Balance Test Score 23/56 PT-OP-E Functional Tests Start: 07/27/23 17:35 Freq: Status: Active Protocol: Document 08/02/23 16:09 J (Rec: 08/02/23 17:46 [id number]) Functional Tests 30 Second Sit to Stand Test Score 3 Comments Pt had to use arms for support and back of legs were touching PT-OP-G Mobility & Gait Start: 07/27/23 17:35 Freq: Status: Active Protocol: Document 08/02/23 16:09 J (Rec: 08/02/23 17:52 [id number]) OP Gait Assessment Assistive Devices Assistive Device 4 Wheeled Walker Orthotic/Prosthetic Devices or Brace: Yes Gait Deviations General Gait Pattern Decreased Stride Length, Decreased Feet Clearance, Flexed Trunk Comments Gait Comments R AFO. After testing, BP checked seated: 157/94, HR 92, SPO2 96% PT-OP-Q Treatments Start: 07/27/23 17:35 Freq: Status: Active Protocol: Document 08/07/23 11:14 [facility] (Rec: 08/07/23 12:27 [facility] [id number]) Gym Equipment Shuttle Recovery Bilateral Squats Resistance 62# x18 reps; 75# x8 reps Therapeutic Exercises Sitting Exercises hip abd Side bilateral Equipment Used L3 Reps/Minutes 20 Comments cues slow and controlled march Side bilateral Reps/Minutes 12 ea APs Side bilateral Reps/Minutes 30 hip add Side bilateral Equipment Used ball Reps/Minutes 5 sec x20 LAQ Side bilateral Equipment Used 2# Reps/Minutes 10 Neuro Re-Education Treatment Balance Activities foam Surface blue foam Comments 1. WBOS w/head turns 2. NBOS 3. staggered stance B hurdles Comments 1.fwd recip over w/1 rail x4 2. lat step to w/BUEs on rail x2 b Coordination Activities backwards walking Equipment 1 rail Comments 10ftx1 15ftx2 PT-OP-T Assessment and Plan Start: 07/27/23 17:35 Freq: Status: Active Protocol: Document 08/07/23 11:14 [facility] (Rec: 08/07/23 12:27 [facility] [id number]) Physical Therapy Assessment Goals Long Short Term Goal (STG) Pt will increase long balance score from a 23/56 to a 35/56 to safely ambulate with an AD STG Duration 08/23/23 [facility] Goal (LTG) Pt will increase long balance score from a 23/56 to a 45/56 to safely ambulate with no AD and have the ability to ambulate outdoors and in the community safely LTG Duration 10/25/23 Stairs Short Term Goal (STG) Pt will be able to ascend and decend second floor steps with an AD and rail with SBA in order to improve exercise tolerance and have the ability to access entire home STG Duration 08/23/23 [facility] Goal (LTG) Pt will be able to ascend and decend one full story safely and efficently with railing I LTG Duration 10/25/23 Walk Short Term Goal (STG) Pt will be able to walk short distances (25 ft) with a SPC in order to improve tolerance and move around home more efficently STG Duration 08/23/23 Bilingual Speech Language Pathologist Goal (LTG) Pt will be able to walk longer distances (100 ft) w/o AD in order to improve tolerance and move around home more efficently LTG Duration 10/04/23 Assessment Summary Assessment Pt did well with use of active rest breaks (seated exercises between activities) to cont to work strength while pt caught his breath. He was challenged by all balance activities and required occ use of rail or PT Min A w/gait belt to keep balance. Physical Therapy Plan Frequency and Duration Frequency of Treatment 2x/Week Duration of treatment (weeks) 12 Plan of Care Start Date 08/02/23 Plan of Care End Date 10/25/23 Next Visit Focus/Plan Next Note Type Treatment Note Next Visit Plan Cont to work balance, leg press, Active rest breaks ( seated exercises to catch breath); advance dynamic balance activities
--- NOTE | 2023-08-09 12:18 | PT.OTN ---
Current Diagnoses Other abnormalities of gait and mobility (08/09/23) Other symptoms and signs involving the musculoskeletal system (08/09/23) Physical Therapy Treatment Note PT-OP-A Visit Information Start: 07/27/23 17:35 Freq: Status: Active Protocol: Document 08/09/23 11:18 AB (Rec: 08/09/23 12:17 AB [id number]) Out-Patient Physical Therapy Visit Information Visit Information Visit Type Treatment Note Visit Note 04/22 Visit Start Time 11:19 Visit Stop Time 12:09 Visit Number 3 Number of CONCRETE PRECAST MOULDER Visits 1 PT-OP-B Current Condition Start: 07/27/23 17:35 Freq: Status: Active Protocol: Document 08/02/23 16:09 JG (Rec: 08/02/23 16:55 JG [id number]) Current Condition History of Current Condition History of Current Condition End of April 2023, pt had a mild N-STEMI and afterwards he was only able to walk short distances for 30 days. Pt is unable to currently walk upstairs and has 2 steps to enter home. He is able to do all ADL's and stay on first floor of home. His home is equipt with a walk in shower, shower seat and raised toilot. He has a history of RA and has been wearing a R AFO for 3 years. His reports that BP has been fluctuating since the N-STEMI. Pt was using a cane around the home and when walking around the block for safty prior to the heart attack but now uses a 4WW to get around. Pt reports that the day before the heart attack he had an achilies rupture and felt like balance was good before that point. PT-OP-C Subjective Start: 07/27/23 17:35 Freq: Status: Active Protocol: Document 08/09/23 11:18 AB (Rec: 08/09/23 12:17 AB [id number]) OP-PT Subjective Patient Comments Patient Comments BP 138/88 HR 58 seated right UE start of session. post sit to stand 100/65 HR 92 reports BP was low this morning, patient denies symptoms. Patient rates LE/ muscle pain 2/10 with to stand . PT-OP-D Balance Start: 07/27/23 17:35 Freq: Status: Active Protocol: Document 08/02/23 16:09 JG (Rec: 08/02/23 17:38 J [id number]) Balance Tests Long Balance Test Long Balance Test Score 23/56 PT-OP-E Functional Tests Start: 07/27/23 17:35 Freq: Status: Active Protocol: Document 08/02/23 16:09 JG (Rec: 08/02/23 17:46 J [id number]) Functional Tests 30 Second Sit to Stand Test Score 3 Comments Pt had to use arms for support and back of legs were touching PT-OP-G Mobility & Gait Start: 07/27/23 17:35 Freq: Status: Active Protocol: Document 08/02/23 16:09 JG (Rec: 08/02/23 17:52 J [id number]) OP Gait Assessment Assistive Devices Assistive Device 4 Wheeled Walker Orthotic/Prosthetic Devices or Brace: Yes Gait Deviations General Gait Pattern Decreased Stride Length, Decreased Feet Clearance, Flexed Trunk Comments Gait Comments R AFO. After testing, BP checked seated: 157/94, HR 92, SPO2 96% PT-OP-Q Treatments Start: 07/27/23 17:35 Freq: Status: Active Protocol: Document 08/09/23 11:18 AB (Rec: 08/09/23 12:17 AB [id number]) Gym Equipment Shuttle Recovery heel raise bilateral Resistance unable with 37 lb or 12 lb Bilateral Squats Resistance 62# X10 X 15 and X 10 Therapeutic Exercises Standing Exercises AP weight shift with walker Standing Exercise Name 4 wheeled walker locked Side bilateral Reps/Minutes X20 Comments verbal and visual cues, verbal cues to perform slowly and keep knees straig PD Standing Exercise Name hamstrings 3 ( 4 unable to perform through range) Side bilateral Reps/Minutes X15 X 2 Comments verbal cues Therapeutic Activity Therapeutic Activity positioning for breathlessness Reps/Minutes throughout session Comments UE's elevated on pillows. Patient/family ed position for breathlessness ie UE's elevated and supported, and discussed how to perform in home and in parking areas sit to stand Name with UE use Reps/Minutes 5 X2 Comments Pt ed self tactile cues for hip hinge and mechanics of sit to stand Gait Training Gait Activity with 4 wheeled walker Device Used 4 wheeled walker Level of Assistance close supervision Distance/Duration 50 feet Treatment Focus breathing Comments verbal cues to breath in through the nose out through the mouth and to ambulate slowly PT-OP-T Assessment and Plan Start: 07/27/23 17:35 Freq: Status: Active Protocol: Document 08/09/23 11:18 AB (Rec: 08/09/23 12:17 AB [id number]) Physical Therapy Assessment Goals Long Short Term Goal (STG) Pt will increase long balance score from a 23/56 to a 35/56 to safely ambulate with an AD STG Duration 08/23/23 Senior Nurse Manager Goal (LTG) Pt will increase long balance score from a 23/56 to a 45/56 to safely ambulate with no AD and have the ability to ambulate outdoors and in the community safely LTG Duration 10/25/23 Stairs Short Term Goal (STG) Pt will be able to ascend and decend second floor steps with an AD and rail with SBA in order to improve exercise tolerance and have the ability to access entire home STG Duration 08/23/23 Senior Nurse Manager Goal (LTG) Pt will be able to ascend and decend one full story safely and efficently with railing I LTG Duration 10/25/23 Walk Short Term Goal (STG) Pt will be able to walk short distances (25 ft) with a SPC in order to improve tolerance and move around home more efficently STG Duration 08/23/23 Senior Nurse Manager Goal (LTG) Pt will be able to walk longer distances (100 ft) w/o AD in order to improve tolerance and move around home more efficently LTG Duration 10/04/23 Assessment Summary Assessment 127/81 HR 87 end of session. Patient required multiple seated rests with positioning for breathlessness througout session, but was very motivated to resume exercise throughout session. Physical Therapy Plan Frequency and Duration Frequency of Treatment 2x/Week Duration of treatment (weeks) 12 Plan of Care Start Date 08/02/23 Plan of Care End Date 10/25/23 Next Visit Focus/Plan Next Note Type Treatment Note Next Visit Plan Cont to work balance, leg press, Active rest breaks ( seated exercises to catch breath); advance dynamic balance activities
--- NOTE | 2023-08-14 16:14 | PT.OTN ---
Current Diagnoses Other abnormalities of gait and mobility (08/14/23) Other symptoms and signs involving the musculoskeletal system (08/14/23) Physical Therapy Treatment Note PT-OP-A Visit Information Start: 07/27/23 17:35 Freq: Status: Active Protocol: Document 08/14/23 14:15 AB (Rec: 08/14/23 16:14 AB [id number]) Out-Patient Physical Therapy Visit Information Visit Information Visit Type Treatment Note Visit Note 05/23 Access Code: [email or web address] Visit Start Time 15:14 Visit Stop Time 16:04 Visit Number 4 Number of HEALTH MANAGER Visits 2 PT-OP-B Current Condition Start: 07/27/23 17:35 Freq: Status: Active Protocol: Document 08/02/23 16:09 JG (Rec: 08/02/23 16:55 JG [id number]) Current Condition History of Current Condition History of Current Condition End of April 2023, pt had a mild N-STEMI and afterwards he was only able to walk short distances for 30 days. Pt is unable to currently walk upstairs and has 2 steps to enter home. He is able to do all ADL's and stay on first floor of home. His home is equipt with a walk in shower, shower seat and raised toilot. He has a history of RA and has been wearing a R AFO for 3 years. His reports that BP has been fluctuating since the N-STEMI. Pt was using a cane around the home and when walking around the block for safty prior to the heart attack but now uses a 4WW to get around. Pt reports that the day before the heart attack he had an achilies rupture and felt like balance was good before that point. PT-OP-C Subjective Start: 07/27/23 17:35 Freq: Status: Active Protocol: Document 08/14/23 14:15 AB (Rec: 08/14/23 16:14 AB [id number]) OP-PT Subjective Patient Comments Patient Comments Patient reports he was fine post previous session, tired. BP seated right UE 140/97 HR 86 PT-OP-D Balance Start: 07/27/23 17:35 Freq: Status: Active Protocol: Document 08/02/23 16:09 JG (Rec: 08/02/23 17:38 JG [id number]) Balance Tests Long Balance Test Long Balance Test Score 23/56 PT-OP-E Functional Tests Start: 07/27/23 17:35 Freq: Status: Active Protocol: Document 08/02/23 16:09 JG (Rec: 08/02/23 17:46 [id number]) Functional Tests 30 Second Sit to Stand Test Score 3 Comments Pt had to use arms for support and back of legs were touching PT-OP-G Mobility & Gait Start: 07/27/23 17:35 Freq: Status: Active Protocol: Document 08/02/23 16:09 JG (Rec: 08/02/23 17:52 [id number]) OP Gait Assessment Assistive Devices Assistive Device 4 Wheeled Walker Orthotic/Prosthetic Devices or Brace: Yes Gait Deviations General Gait Pattern Decreased Stride Length, Decreased Feet Clearance, Flexed Trunk Comments Gait Comments R AFO. After testing, BP checked seated: 157/94, HR 92, SPO2 96% PT-OP-Q Treatments Start: 07/27/23 17:35 Freq: Status: Active Protocol: Document 08/14/23 14:15 AB (Rec: 08/14/23 16:14 AB [id number]) Gym Equipment Shuttle Recovery Bilateral Squats Resistance 62# X15X 2 Therapeutic Exercises Sitting Exercises hip abd Side bilateral Equipment Used L3 Reps/Minutes 20 X without hold then one one minute hold Comments cues slow and controlled LAQ Equipment Used level 3 green Reps/Minutes X5 each LE Standing Exercises PD Standing Exercise Name Seated PD machine Therapeutic Activity Therapeutic Activity backing to chair with 4 wheeled walker Comments during transfer in session, post verbal and visual cues and patient ed rationale of fully backing to chair with walker prior to sitting. Neuro Re-Education Treatment Balance Activities foam Surface blue foam, black foam with stagger stance Comments 1. WBOS w/head turns, and eyes closed X 5 2. NBOS head turns, eyes closed, visual scanning 3. staggered stance ( 2 black pads ) AMALIA head turns, eyes closed, visual scanning hurdles Comments 1.fwd recip over w/1 rail x4 2. lat step to w/BUEs on rail x1 Coordination Activities backwards walking Equipment 1 rail Comments 10ftx1 PT-OP-T Assessment and Plan Start: 07/27/23 17:35 Freq: Status: Active Protocol: Document 08/14/23 14:15 AB (Rec: 08/14/23 16:14 AB [id number]) Physical Therapy Assessment Goals Long Short Term Goal (STG) Pt will increase long balance score from a 23/56 to a 35/56 to safely ambulate with an AD STG Duration 08/23/23 [facility] Goal (LTG) Pt will increase long balance score from a 23/56 to a 45/56 to safely ambulate with no AD and have the ability to ambulate outdoors and in the community safely LTG Duration 10/25/23 Stairs Short Term Goal (STG) Pt will be able to ascend and decend second floor steps with an AD and rail with SBA in order to improve exercise tolerance and have the ability to access entire home STG Duration 08/23/23 [facility] Goal (LTG) Pt will be able to ascend and decend one full story safely and efficently with railing I LTG Duration 10/25/23 Walk Short Term Goal (STG) Pt will be able to walk short distances (25 ft) with a SPC in order to improve tolerance and move around home more efficently STG Duration 08/23/23 Leader Writer Goal (LTG) Pt will be able to walk longer distances (100 ft) w/o AD in order to improve tolerance and move around home more efficently LTG Duration 10/04/23 Assessment Summary Assessment Patient positioned for breathlessness between trials of all standing exercises. Noted less than one second SLS without UE use and increased shaking pre glute med activation, noted one second post activation with decreased shaking and patient verbalizing feeling steadier. Physical Therapy Plan Frequency and Duration Frequency of Treatment 2x/Week Duration of treatment (weeks) 12 Plan of Care Start Date 08/02/23 Plan of Care End Date 10/25/23 Next Visit Focus/Plan Next Note Type Treatment Note Next Visit Plan Cont to work balance, leg press, Active rest breaks ( seated exercises to catch breath); advance dynamic balance activities
--- NOTE | 2023-08-16 17:38 | PT.OTN ---
Addendum entered and electronically signed by Kirsty Palacio PT 08/17/23 13:15: PT direct supervision and direction to student PT Austin Eaton throughout session Original Note: Current Diagnoses Other abnormalities of gait and mobility (08/16/23) Other symptoms and signs involving the musculoskeletal system (08/16/23) Physical Therapy Treatment Note PT-OP-A Visit Information Start: 07/27/23 17:35 Freq: Status: Active Protocol: Document 08/16/23 09:48 JG (Rec: 08/16/23 15:35 JG [id number]) Out-Patient Physical Therapy Visit Information Visit Information Visit Type Treatment Note Visit Note 06/22 Visit Start Time 09:48 Visit Stop Time 10:32 Visit Number 5 Number of HISTORY FACULTY MEMBER Visits 0 PT-OP-B Current Condition Start: 07/27/23 17:35 Freq: Status: Active Protocol: Document 08/02/23 16:09 JG (Rec: 08/02/23 16:55 JG [id number]) Current Condition History of Current Condition History of Current Condition End of April 2023, pt had a mild N-STEMI and afterwards he was only able to walk short distances for 30 days. Pt is unable to currently walk upstairs and has 2 steps to enter home. He is able to do all ADL's and stay on first floor of home. His home is equipt with a walk in shower, shower seat and raised toilot. He has a history of RA and has been wearing a R AFO for 3 years. His reports that BP has been fluctuating since the N-STEMI. Pt was using a cane around the home and when walking around the block for safty prior to the heart attack but now uses a 4WW to get around. Pt reports that the day before the heart attack he had an achilies rupture and felt like balance was good before that point. PT-OP-C Subjective Start: 07/27/23 17:35 Freq: Status: Active Protocol: Document 08/16/23 09:48 JG (Rec: 08/16/23 11:17 JG [id number]) OP-PT Subjective Patient Comments Patient Comments Everything at home has been going fine Patient Reported Progress Improving PT-OP-D Balance Start: 07/27/23 17:35 Freq: Status: Active Protocol: Document 08/02/23 16:09 JG (Rec: 08/02/23 17:38 J [id number]) Balance Tests Long Balance Test Long Balance Test Score 23/56 PT-OP-E Functional Tests Start: 07/27/23 17:35 Freq: Status: Active Protocol: Document 08/02/23 16:09 JG (Rec: 08/02/23 17:46 JG [id number]) Functional Tests 30 Second Sit to Stand Test Score 3 Comments Pt had to use arms for support and back of legs were touching PT-OP-G Mobility & Gait Start: 07/27/23 17:35 Freq: Status: Active Protocol: Document 08/02/23 16:09 JG (Rec: 08/02/23 17:52 J [id number]) OP Gait Assessment Assistive Devices Assistive Device 4 Wheeled Walker Orthotic/Prosthetic Devices or Brace: Yes Gait Deviations General Gait Pattern Decreased Stride Length, Decreased Feet Clearance, Flexed Trunk Comments Gait Comments R AFO. After testing, BP checked seated: 157/94, HR 92, SPO2 96% PT-OP-Q Treatments Start: 07/27/23 17:35 Freq: Status: Active Protocol: Document 08/16/23 09:48 JG (Rec: 08/16/23 11:17 JG [id number]) Gym Equipment Shuttle Recovery Bilateral Squats Resistance 62# X15X 2 Therapeutic Exercises Sitting Exercises Ankle Sitting Exercise Name Plantarflexion/dorsiflexion Side bilateral Reps/Minutes 20 ea Comments cueing to sit fwd in chair hip abd Side bilateral Equipment Used lvl 3 therband Reps/Minutes 1 min Comments cues slow and controlled march Side bilateral Reps/Minutes 10 ea Comments cueing to sit fwd in chiar LAQ Side bilateral Resistance 1 lb weight Reps/Minutes 2x5 ea Neuro Re-Education Treatment Balance Activities foam Surface blue foam, EO/EC, tandem stance Comments 1. WBOS w/head turns/vertical head tilts, and EO X 5 ea direction 2. WBOS w/EC. PT unable to tolerate 3. EO tandem stance B hurdles Comments 1.fwd recip over using parallel bars for support. Pt completed rep then sat down to perform LE exercise x4 Self-Care/Home Management Treatment Activities Self-Care/Home Management Activities BP taken on R arm 133/88 PT-OP-T Assessment and Plan Start: 07/27/23 17:35 Freq: Status: Active Protocol: Document 08/16/23 09:48 TAQUERIA (Rec: 08/16/23 15:50 Anne MarieEleanor [id number]) Physical Therapy Assessment Goals Long Short Term Goal (STG) Pt will increase long balance score from a 23/56 to a 35/56 to safely ambulate with an AD STG Duration 08/23/23 [facility] Goal (LTG) Pt will increase long balance score from a 23/56 to a 45/56 to safely ambulate with no AD and have the ability to ambulate outdoors and in the community safely LTG Duration 10/25/23 Stairs Short Term Goal (STG) Pt will be able to ascend and decend second floor steps with an AD and rail with SBA in order to improve exercise tolerance and have the ability to access entire home STG Duration 08/23/23 [facility] Goal (LTG) Pt will be able to ascend and decend one full story safely and efficently with railing I LTG Duration 10/25/23 Walk Short Term Goal (STG) Pt will be able to walk short distances (25 ft) with a SPC in order to improve tolerance and move around home more efficently STG Duration 08/23/23 [facility] Goal (LTG) Pt will be able to walk longer distances (100 ft) w/o AD in order to improve tolerance and move around home more efficently LTG Duration 10/04/23 Progress Towards Goals Progress Towards Goals Progressing Toward Goals Assessment Summary Assessment Pt did well today and is showing inc steadiness on feet . Pt utilitzed active rest breaks in between standing actvities. Pt was able to tolerate activities for longer periods of time before needing to rest. Physical Therapy Plan Frequency and Duration Frequency of Treatment 2x/Week Duration of treatment (weeks) 12 Plan of Care Start Date 08/02/23 Plan of Care End Date 10/25/23 Next Visit Focus/Plan Next Note Type Treatment Note Next Visit Plan Con't to work on balance, standing/execise tolerance, active rest breaks, seated exercises, dynamic activities
--- NOTE | 2023-08-22 12:47 | PT.OTN ---
Current Diagnoses Other abnormalities of gait and mobility (08/22/23) Other symptoms and signs involving the musculoskeletal system (08/22/23) Physical Therapy Treatment Note PT-OP-A Visit Information Start: 07/27/23 17:35 Freq: Status: Active Protocol: Document 08/22/23 10:43 SW (Rec: 08/22/23 11:17 SW [id number]) Out-Patient Physical Therapy Visit Information Visit Information Visit Type Treatment Note Visit Note 06/22 Visit Start Time 10:31 Visit Stop Time 11:11 Visit Number 6 Number of FERN PICKER Visits 1 PT-OP-B Current Condition Start: 07/27/23 17:35 Freq: Status: Active Protocol: Document 08/02/23 16:09 JG (Rec: 08/02/23 16:55 JG [id number]) Current Condition History of Current Condition History of Current Condition End of April 2023, pt had a mild N-STEMI and afterwards he was only able to walk short distances for 30 days. Pt is unable to currently walk upstairs and has 2 steps to enter home. He is able to do all ADL's and stay on first floor of home. His home is equipt with a walk in shower, shower seat and raised toilot. He has a history of RA and has been wearing a R AFO for 3 years. His reports that BP has been fluctuating since the N-STEMI. Pt was using a cane around the home and when walking around the block for safty prior to the heart attack but now uses a 4WW to get around. Pt reports that the day before the heart attack he had an achilies rupture and felt like balance was good before that point. PT-OP-C Subjective Start: 07/27/23 17:35 Freq: Status: Active Protocol: Document 08/22/23 10:43 SW (Rec: 08/22/23 11:17 SW [id number]) OP-PT Subjective Patient Comments Patient Comments Pt reports no new call outs since last session. Pt reports still feeling fatigue when walking with 4WW. PT-OP-D Balance Start: 07/27/23 17:35 Freq: Status: Active Protocol: Document 08/02/23 16:09 JG (Rec: 08/02/23 17:38 JG [id number]) Balance Tests Long Balance Test Long Balance Test Score 23/56 PT-OP-E Functional Tests Start: 07/27/23 17:35 Freq: Status: Active Protocol: Document 08/02/23 16:09 JG (Rec: 08/02/23 17:46 [id number]) Functional Tests 30 Second Sit to Stand Test Score 3 Comments Pt had to use arms for support and back of legs were touching PT-OP-G Mobility & Gait Start: 07/27/23 17:35 Freq: Status: Active Protocol: Document 08/02/23 16:09 JG (Rec: 08/02/23 17:52 [id number]) OP Gait Assessment Assistive Devices Assistive Device 4 Wheeled Walker Orthotic/Prosthetic Devices or Brace: Yes Gait Deviations General Gait Pattern Decreased Stride Length, Decreased Feet Clearance, Flexed Trunk Comments Gait Comments R AFO. After testing, BP checked seated: 157/94, HR 92, SPO2 96% PT-OP-Q Treatments Start: 07/27/23 17:35 Freq: Status: Active Protocol: Document 08/22/23 10:43 SW (Rec: 08/22/23 11:17 SW [id number]) Gym Equipment Shuttle Recovery Bilateral Squats Resistance 62# Shuttle Recovery Platform Stable Reps/Time 2x15, x5 Therapeutic Exercises Sitting Exercises Ankle Sitting Exercise Name Plantarflexion/dorsiflexion Side bilateral Resistance BUE resistance to distal femur Reps/Minutes 20 ea Comments cueing to sit fwd in chair, slower control hip abd Side bilateral Equipment Used lvl 3 therband>level 4 TB Reps/Minutes x30> x1 Comments cues slow and controlled march Side bilateral Reps/Minutes 10 ea Comments cueing to sit fwd in chair, cues for slow and controll Neuro Re-Education Treatment Balance Activities foam Surface blue foam, EO/EC, tandem stance Comments 1. WBOS w/head turns/vertical head tilts, and EO X 5 ea direction 2. WBOS w/EC. PT unable to tolerate 3. EO tandem stance B hurdles Comments 1.fwd recip over using parallel bars for support. Pt completed rep then sat down to perform LE exercise x4 PT-OP-T Assessment and Plan Start: 07/27/23 17:35 Freq: Status: Active Protocol: Document 08/22/23 10:43 SW (Rec: 08/22/23 11:17 [id number]) Physical Therapy Assessment Goals Long Short Term Goal (STG) Pt will increase long balance score from a 23/56 to a 35/56 to safely ambulate with an AD STG Duration 08/23/23 Retirement Goal (LTG) Pt will increase long balance score from a 23/56 to a 45/56 to safely ambulate with no AD and have the ability to ambulate outdoors and in the community safely LTG Duration 10/25/23 Stairs Short Term Goal (STG) Pt will be able to ascend and decend second floor steps with an AD and rail with SBA in order to improve exercise tolerance and have the ability to access entire home STG Duration 08/23/23 Retirement Goal (LTG) Pt will be able to ascend and decend one full story safely and efficently with railing I LTG Duration 10/25/23 Walk Short Term Goal (STG) Pt will be able to walk short distances (25 ft) with a SPC in order to improve tolerance and move around home more efficently STG Duration 08/23/23 Retirement Goal (LTG) Pt will be able to walk longer distances (100 ft) w/o AD in order to improve tolerance and move around home more efficently LTG Duration 10/04/23 Assessment Summary Assessment Pt tolerated session well. Continued seated ther ex for active recovery between standing exercsises. Progressed pt to Level 4 TB for seated hip abd strength. Educated pt throughout session on importance of slow controlled movements with ther ex both eccentric and concentrically to maximize mm activation throughout entire exercise. Pt continues to fatigue quickly requiring seated rest breaks. Plan to progress pt standing tolerance and continue balance progression to pt tolerance as able next session. Physical Therapy Plan Frequency and Duration Frequency of Treatment 2x/Week Duration of treatment (weeks) 12 Plan of Care Start Date 08/02/23 Plan of Care End Date 10/25/23 Therapeutic Interventions Therapeutic Interventions Balance Training,Coordination Training,Gait Training,Home Exercise Program,Joint Mobilizations,Manual Therapy, Neuromuscular Re-education, Orthotic/Prosthetic Management ,Patient/Caregiver Education, Self-Care/Home Management, Sensory Integration,Soft Tissue Mobilization,Taping, Therapeutic Activities, Therapeutic Exercises, Vestibular Rehabilitation Modalities Biofeedback,Cold Pack/Ice Massage,Electric Stimulation, Hot Packs,Infrared Therapy, Traction- Mechanical, Ultrasound Next Visit Focus/Plan Next Note Type Treatment Note Next Visit Plan Con't to work on balance, standing/execise tolerance, active rest breaks, seated exercises, dynamic activities
--- NOTE | 2023-08-24 17:23 | PT.OTN ---
Current Diagnoses Other abnormalities of gait and mobility (08/24/23) Other symptoms and signs involving the musculoskeletal system (08/24/23) Physical Therapy Treatment Note PT-OP-A Visit Information Start: 07/27/23 17:35 Freq: Status: Active Protocol: Document 08/24/23 13:59 SW (Rec: 08/24/23 14:35 SW [id number]) Out-Patient Physical Therapy Visit Information Visit Information Visit Type Treatment Note Visit Note 08/22 BP: 143/93 Right arm HR: 89 Visit Start Time 14:47 Visit Stop Time 15:25 Visit Number 7 Number of QUALITY INSPECTOR Visits 2 PT-OP-B Current Condition Start: 07/27/23 17:35 Freq: Status: Active Protocol: Document 08/02/23 16:09 JG (Rec: 08/02/23 16:55 JG [id number]) Current Condition History of Current Condition History of Current Condition End of April 2023, pt had a mild N-STEMI and afterwards he was only able to walk short distances for 30 days. Pt is unable to currently walk upstairs and has 2 steps to enter home. He is able to do all ADL's and stay on first floor of home. His home is equipt with a walk in shower, shower seat and raised toilot. He has a history of RA and has been wearing a R AFO for 3 years. His reports that BP has been fluctuating since the N-STEMI. Pt was using a cane around the home and when walking around the block for safty prior to the heart attack but now uses a 4WW to get around. Pt reports that the day before the heart attack he had an achilies rupture and felt like balance was good before that point. PT-OP-C Subjective Start: 07/27/23 17:35 Freq: Status: Active Protocol: Document 08/24/23 13:59 SW (Rec: 08/24/23 14:35 SW [id number]) OP-PT Subjective Patient Comments Patient Comments Pt reports pain in distal quad , pt thinks he overdid it on Monday, feels better today than yesterday. PT-OP-D Balance Start: 07/27/23 17:35 Freq: Status: Active Protocol: Document 08/02/23 16:09 JG (Rec: 08/02/23 17:38 JG [id number]) Balance Tests Long Balance Test Long Balance Test Score 23/56 PT-OP-E Functional Tests Start: 07/27/23 17:35 Freq: Status: Active Protocol: Document 08/02/23 16:09 J (Rec: 08/02/23 17:46 [id number]) Functional Tests 30 Second Sit to Stand Test Score 3 Comments Pt had to use arms for support and back of legs were touching PT-OP-G Mobility & Gait Start: 07/27/23 17:35 Freq: Status: Active Protocol: Document 08/02/23 16:09 J (Rec: 08/02/23 17:52 [id number]) OP Gait Assessment Assistive Devices Assistive Device 4 Wheeled Walker Orthotic/Prosthetic Devices or Brace: Yes Gait Deviations General Gait Pattern Decreased Stride Length, Decreased Feet Clearance, Flexed Trunk Comments Gait Comments R AFO. After testing, BP checked seated: 157/94, HR 92, SPO2 96% PT-OP-Q Treatments Start: 07/27/23 17:35 Freq: Status: Active Protocol: Document 08/24/23 13:59 SW (Rec: 08/24/23 14:35 SW [id number]) Therapeutic Exercises Sitting Exercises HS curl Sitting Exercise Name HS curl Side bilateral Resistance AROM Reps/Minutes x10 ea Horizontal Abd Sitting Exercise Name Horizontal Abd Side bilateral Resistance AROM Reps/Minutes x5 Comments for strength to carryover into gait Ankle Sitting Exercise Name Plantarflexion/dorsiflexion Side bilateral Reps/Minutes 20 ea Comments cued for slower controlled movement and increased range hip abd Side bilateral Equipment Used lvl 3 therband Reps/Minutes x30> x1 Comments cues slow and controlled march Side bilateral Reps/Minutes 10 ea Comments cueing to sit fwd in chair, cues for slow and controll LAQ Side bilateral Resistance 1 lb weight Reps/Minutes 2x5 ea Neuro Re-Education Treatment Balance Activities hurdles Details fwd/lateral Surface stable Reps/Duration // bars Comments 1. 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 PT-OP-T Assessment and Plan Start: 07/27/23 17:35 Freq: Status: Active Protocol: Document 08/24/23 13:59 SW (Rec: 08/24/23 14:35 [id number]) Physical Therapy Assessment Goals Long Short Term Goal (STG) Pt will increase long balance score from a 23/56 to a 35/56 to safely ambulate with an AD STG Duration 08/23/23 Assisted Goal (LTG) Pt will increase long balance score from a 23/56 to a 45/56 to safely ambulate with no AD and have the ability to ambulate outdoors and in the community safely LTG Duration 10/25/23 Stairs Short Term Goal (STG) Pt will be able to ascend and decend second floor steps with an AD and rail with SBA in order to improve exercise tolerance and have the ability to access entire home STG Duration 08/23/23 Early Intervention Specialist Goal (LTG) Pt will be able to ascend and decend one full story safely and efficently with railing I LTG Duration 10/25/23 Walk Short Term Goal (STG) Pt will be able to walk short distances (25 ft) with a SPC in order to improve tolerance and move around home more efficently STG Duration 08/23/23 Early Intervention Specialist Goal (LTG) Pt will be able to walk longer distances (100 ft) w/o AD in order to improve tolerance and move around home more efficently LTG Duration 10/04/23 Assessment Summary Assessment Pt quick to fatigue and low endurance this session with standing exercises, assessed pt vitals BP: 143/93 HR: 89 bpm with activity. Pt had decreased tolerance to standing exercises this session from previous session. Encouraged frequent pt feedback during exercises for pt tolerance and symptom monitoring throughout session. Pt overwhelmed with fatigue level this session, pt wanted to continue session with seated exercises only. Educated pt on importance of slower, gradual progressions, and not to push too much too quick. Pt may benefit from continued education on energy conservation. Physical Therapy Plan Frequency and Duration Frequency of Treatment 2x/Week Duration of treatment (weeks) 12 Plan of Care Start Date 08/02/23 Plan of Care End Date 10/25/23 Therapeutic Interventions Therapeutic Interventions Balance Training,Coordination Training,Gait Training,Home Exercise Program,Joint Mobilizations,Manual Therapy, Neuromuscular Re-education, Orthotic/Prosthetic Management ,Patient/Caregiver Education, Self-Care/Home Management, Sensory Integration,Soft Tissue Mobilization,Taping, Therapeutic Activities, Therapeutic Exercises, Vestibular Rehabilitation Modalities Biofeedback,Cold Pack/Ice Massage,Electric Stimulation, Hot Packs,Infrared Therapy, Traction- Mechanical, Ultrasound Next Visit Focus/Plan Next Note Type Treatment Note Next Visit Plan *further discussion to MD about cardiopulmonary rehab Con't to work on balance, standing/execise tolerance, active rest breaks, seated exercises, dynamic activities
--- NOTE | 2023-09-06 12:14 | PT.OPDS ---
Current Diagnoses Other abnormalities of gait and mobility (08/24/23) Other symptoms and signs involving the musculoskeletal system (08/24/23) Visit Care Team Role Provider Type Nomi Peoples MD Attending Provider Non-Staff Family Provider Primary Care Provider Referring Provider Specialty: Family Practice Address: [place], [address] Email: Visit Number Visit Number 7 Discharge Summary PT-OP-B Current Condition Start: 07/27/23 17:35 Freq: Status: Active Protocol: Document 08/02/23 16:09 JG (Rec: 08/02/23 16:55 JG [id number]) Current Condition History of Current Condition History of Current Condition End of April 2023, pt had a mild N-STEMI and afterwards he was only able to walk short distances for 30 days. Pt is unable to currently walk upstairs and has 2 steps to enter home. He is able to do all ADL's and stay on first floor of home. His home is equipt with a walk in shower, shower seat and raised toilot. He has a history of RA and has been wearing a R AFO for 3 years. His reports that BP has been fluctuating since the N-STEMI. Pt was using a cane around the home and when walking around the block for safty prior to the heart attack but now uses a 4WW to get around. Pt reports that the day before the heart attack he had an achilies rupture and felt like balance was good before that point. PT-OP-C Subjective Start: 07/27/23 17:35 Freq: Status: Active Protocol: Document 08/24/23 13:59 SW (Rec: 08/24/23 14:35 SW [id number]) OP-PT Subjective Patient Comments Patient Comments Pt reports pain in distal quad , pt thinks he overdid it on Monday, feels better today than yesterday. PT-OP-D Balance Start: 07/27/23 17:35 Freq: Status: Active Protocol: Document 08/02/23 16:09 JG (Rec: 08/02/23 17:38 JG [id number]) Balance Tests Long Balance Test Long Balance Test Score 23/56 PT-OP-E Functional Tests Start: 07/27/23 17:35 Freq: Status: Active Protocol: Document 08/02/23 16:09 JG (Rec: 08/02/23 17:46 [id number]) Functional Tests 30 Second Sit to Stand Test Score 3 Comments Pt had to use arms for support and back of legs were touching PT-OP-G Mobility & Gait Start: 07/27/23 17:35 Freq: Status: Active Protocol: Document 08/02/23 16:09 JG (Rec: 08/02/23 17:52 [id number]) OP Gait Assessment Assistive Devices Assistive Device 4 Wheeled Walker Orthotic/Prosthetic Devices or Brace: Yes Gait Deviations General Gait Pattern Decreased Stride Length, Decreased Feet Clearance, Flexed Trunk Comments Gait Comments R AFO. After testing, BP checked seated: 157/94, HR 92, SPO2 96% PT-OP-T Assessment and Plan Start: 07/27/23 17:35 Freq: Status: Active Protocol: Document 09/06/23 12:12 [facility] (Rec: 09/06/23 12:14 [facility] [id number]) Physical Therapy Assessment Goals Long Short Term Goal (STG) Pt will increase long balance score from a 23/56 to a 35/56 to safely ambulate with an AD STG Duration 08/23/23 [facility] Goal (LTG) Pt will increase long balance score from a 23/56 to a 45/56 to safely ambulate with no AD and have the ability to ambulate outdoors and in the community safely LTG Duration 10/25/23 Stairs Short Term Goal (STG) Pt will be able to ascend and decend second floor steps with an AD and rail with SBA in order to improve exercise tolerance and have the ability to access entire home STG Duration 08/23/23 [employer] Goal (LTG) Pt will be able to ascend and decend one full story safely and efficently with railing I LTG Duration 10/25/23 Walk Short Term Goal (STG) Pt will be able to walk short distances (25 ft) with a SPC in order to improve tolerance and move around home more efficently STG Duration 08/23/23 Wheel Alignment Mechanic Goal (LTG) Pt will be able to walk longer distances (100 ft) w/o AD in order to improve tolerance and move around home more efficently LTG Duration 10/04/23 Assessment Summary Assessment Pt was doing well with PT, but called to cancel d/t pt currently hospitalized d/t abcess in colon and bladder. PT got this info w/follow up call to family and recommended to talk to hospital staff to determine if pt will need SNF or HH vs OP PT again and encouraged to get referral when pt ready to return. DC d/t change in medical status Physical Therapy Plan Discharge Physical Therapy Discharge Reasons Change in Medical Status
== END 2023-09-08 07:49 | disposition home or self-care (01) ==
LOC: PHYS 13:45
PROVIDERS: Family Provider Family Medicine Sports Medicine; PCP Family Medicine Sports Medicine; Referring Provider Family Medicine Sports Medicine; Visit Provider Family Medicine Sports Medicine
DX: R26.89 Other abnormalities of gait and mobility (principal); R29.898 Other symptoms and signs involving the musculoskeletal system
CPT/HCPCS: 97110; 97112; 97163; 97530

== ENCOUNTER 2023-08-31 19:35 | Emergency (ER) | payer MEDICARE, SELFPAY ==
[2023-08-31] VITALS (10 sets, daily range): BP systolic 119–149; BP diastolic 69–93; PULSE 67–82; RESP 14–19; TEMP 36.6; O2SAT 97–99; BMI 30.4
--- NOTE | 2023-08-31 19:36 | DI.CT.S_ITS ---
PROCEDURE: CT HEAD/BRAIN WO CON INDICATIONS: GLF, HEAD/NECK PAIN ON ELIQUIS TECHNIQUE: Noncontrast 4.5 mm thick angled axial sections acquired from the foramen magnum to the vertex, with coronal and sagittal reformats. For radiation dose reduction, the following was used: automated exposure control, adjustment of mA and/or kV according to patient size. COMPARISON: None. FINDINGS: Image quality: Diagnostic. CSF spaces: Basal cisterns are patent. No extra-axial fluid collections. The ventricles are symmetric in size and shape. Brain: No intracranial bleeds or masses. There is cerebral volume loss for age, with resultant ventricular and sulcal prominence. There are periventricular and deep white matter chronic small vessel ischemic changes. There is intracranial internal carotid artery atherosclerosis. Skull and face: Calvarium and visualized facial bones appear intact, without suspicious lesions. Sinuses: Sinusitis and postsurgical changes from prior endoscopic sinonasal surgery. Prior right mastoidectomy. The left mastoid air cells clear. IMPRESSION: No acute intracranial pathology. Dictated by: Dallas Otreo M.D. on 08/31/2023 at 19:52 Approved by: Dallas Otero M.D. on 08/31/2023 at 19:53
--- NOTE | 2023-08-31 19:36 | DI.CT.S_ITS ---
PROCEDURE: CT CERVICAL SPINE WO CON INDICATIONS: GLF, HEAD/NECK PAIN ON ELIQUIS TECHNIQUE: Noncontrast 3 mm thick sections acquired from the skull base to the T4 level. Sagittal and coronal reformats were then constructed. For radiation dose reduction, the following was used: automated exposure control, adjustment of mA and/or kV according to patient size. COMPARISON: None. FINDINGS: Image quality: Excellent. Bones: No fractures or dislocations. Severe multilevel degenerative changes of the spine. Grade 1 anterolisthesis of C3 on C4. Visualized superior ribs are intact. Soft tissues: Prevertebral soft tissues are normal in thickness. No paravertebral hematomas. No apical pneumothoraces. IMPRESSION: No displaced fracture or traumatic subluxation. Dictated by: Dallas Otero M.D. on 08/31/2023 at 19:54 Approved by: Dallas Otero M.D. on 08/31/2023 at 19:55
--- NOTE | 2023-08-31 19:51 | EKG_ITS ---
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
--- NOTE | 2023-08-31 19:58 | DI.RAD.S_ITS ---
PROCEDURE: XR CHEST 1V INDICATIONS: chest pain TECHNIQUE: One view of the chest was acquired. COMPARISON: [facility], CR, XR CHEST 1V, 05/19/2023, 18:37. FINDINGS: Surgical changes and devices: None. Lungs and pleura: Lungs are clear. No pleural effusions or pneumothorax. Mediastinum: Mediastinal contours appear normal. Heart size is normal. Bones and chest wall: No suspicious bony lesions. Overlying soft tissues appear unremarkable. IMPRESSION: No acute pulmonary process. Dictated by: Rachael Sotomayor M.D. on 08/31/2023 at 21:17 Approved by: Rachael Sotomayor M.D. on 08/31/2023 at 21:17
--- NOTE | 2023-08-31 20:11 | PC.NURSE ---
Patient is being seen for his heart and pulmonary function by MD Miguel and Yg. He states that he has low EF and SOB. He also states that he's been having an increase in his weight over the last 3 days. He take furosemide and spironolactone.
[2023-08-31 20:32] LABS: Add Manual Diff / Slide Review NO; Basophils Absolute Auto 100 /uL (0-100); Basophils Percent Auto 0.8 % (0-2); Eosinophils Absolute Auto 0 /uL (0-450); Hematocrit 38.3 % (41-53); Lymphocytes Absolute Auto 600 /uL (1100-4500); Lymphocytes Percent Auto 5.4 % (25-40); Mean Corpuscular HGB Conc 33.8 % (30-36); Mean Corpuscular Hemoglobin 35.2 PG (26-34); Mean Corpuscular Volume 104.1 fL (80-100); Monocytes Absolute Auto 600 /uL (0-900); Monocytes Percent Auto 5.6 % (3-14); Neutrophils Absolute Auto 9100 /uL (1500-7000); Neutrophils Percent Auto 88.2 % (50-75); Platelet Count 172 X10^3/uL (150-400); Red Blood Cell Count 3.68 X10^6/uL (4.5-5.9); Red Cell Distribution Width 15.8 % (11.6-14.8); White Blood Cell Count 10.3 X10^3/uL (4.5-11.0)
--- NOTE | 2023-08-31 20:33 | ED.GENADULT ---
HPI - General Adult General Chief complaint: Arrhythmia/Palpitations Stated complaint: fall-hit head Time Seen by Provider: 08/31/23 19:36 Source: EMS Mode of arrival: EMS History of Present Illness HPI narrative: 78-year-old male with history of congestive heart failure, EF 40-45%, paroxysmal atrial fibrillation on Eliquis presents by EMS from home for head injury. Patient states that he normally walks with a walker, but today attempted to ambulate with a cane. He states that he lost strength in his arm and fell, landing and hitting his head on the ground. EMS reported questionable loss of consciousness on scene after head injury. called 911 for evaluation. On arrival patient was complaining of generalized head and neck pain. Related Data Previous Rx's Medication Instructions Recorded dabigatran etexilate 150 mg 150 mg PO BID 30 days #0 caps 05/03/16 capsule (Pradaxa) diltiazem HCl 120 mg 120 mg PO QDAY 30 days #0 tabs 05/03/16 capsule,extended release 24 hr Allergies Allergy/AdvReac Type Severity Reaction Status Date / Time levofloxacin [LEVOFLOXACIN] Allergy Severe Rash Verified 05/19/23 19:40 Beta-Blockers Allergy Intermediate Verified 05/19/23 19:40 (Beta-Adrenergic Bloc [BETA-BLOCKERS (BETA-ADRENERGIC BLOC] midazolam [From Versed] Allergy Intermediate Confusion Verified 05/19/23 19:39 Patient History Social History Smoking Status: Former smoker Smoking Status: Former smoker alcohol intake frequency: a few times a month Substance Use Type: marijuana Exam Initial Vital Signs Initial Vital Signs: Vital Signs Pulse Oximetry 98 08/31/23 19:47 Const: Awake, alert, no acute distress, appears chronically unwell Cardiac: regular rate, regular rhythm RESP: unlabored, clear bilaterally MSK: 1+ pitting edema to thighs bilaterally Skin: Warm, Dry, intact, no rashes Neuro: AO x3, CN II-XII grossly intact, moves all extremities Course Orders Ordered: ED Orders 08/31/23 19:36 CT cervical spine wo con Stat CT head/brain wo con Stat 08/31/23 19:51 EKG-12 Lead Routine 08/31/23 19:58 XR chest 1V Stat EKG-12 Lead Stat 08/31/23 20:19 Complete Blood Count AUTO DIFF Stat Comprehensive Metabolic Panel Stat Lipase Stat Magnesium Stat NT-proBNP (BNP-Adult 18+) Stat PTT Partial Thromboplastin Darrell Stat Prothrombin Time INR Stat Troponin & CK Cardiac Panel Stat 08/31/23 22:07 Trop I [Troponin I] Stat Vital Signs Vital signs: Vital Signs - 8 hr 08/31/23 20:30 08/31/23 20:30 08/31/23 21:00 Pulse Rate 72 Respiratory Rate 18 Blood Pressure 134/79 149/92 H Pulse Oximetry 99 08/31/23 21:00 08/31/23 21:30 08/31/23 21:30 Pulse Rate 68 68 Respiratory Rate 19 16 Blood Pressure 148/93 H Pulse Oximetry 99 98 08/31/23 22:00 08/31/23 22:00 08/31/23 22:30 Pulse Rate 67 Respiratory Rate 16 Blood Pressure 149/91 H 148/88 H Pulse Oximetry 98 08/31/23 22:30 08/31/23 23:00 08/31/23 23:00 Pulse Rate 67 68 Respiratory Rate 16 19 Blood Pressure 140/84 Pulse Oximetry 97 98 Medical Decision Making Lab Data 08/31/23 20:19 08/31/23 20:19 Labs: Lab Results 08/31/23 08/31/23 Range/Units 20:19 22:07 WBC 10.3 (4.5-11.0) X10^3/uL RBC 3.68 L (4.5-5.9) X10^6/uL Hgb 13.0 L (13.5-17.5) g/dL Hct 38.3 L (41-53) % MCV 104.1 H (80-100) fL MCH 35.2 H (26-34) PG MCHC 33.8 (30-36) % RDW 15.8 H (11.6-14.8) % Plt Count 172 (150-400) X10^3/uL Neut % (Auto) 88.2 H (50-75) % Lymph % (Auto) 5.4 L (25-40) % Canadian % (Auto) 5.6 (3-14) % Eos % (Auto) 0.0 L (2-4) % Baso % (Auto) 0.8 (0-2) % Neut # (Auto) 9100 H (1398-7051) /uL Lymph # (Auto) 600 L (9812-1925) /uL Canadian # (Auto) 600 (0-900) /uL Eos # (Auto) 0 (0-450) /uL Baso # (Auto) 100 (0-100) /uL PT 16.7 H (9.4-12.5) SECONDS INR 1.5 H (0.9-1.3) APTT 29 (25.1-36.5) SECONDS Sodium 135 L (137-145) mmol/L Potassium 4.5 (3.4-5.1) mmol/L Chloride 109 H (98-107) mmol/L Carbon Dioxide 18 L (22-32) mmol/L BUN 56 H (9-20) mg/dL Creatinine 1.11 (0.66-1.25) mg/dL Estimated GFR > 60 (>60) mL/min BUN/Creatinine Ratio 50.5 H (6-22) Glucose 126 H (80-110) mg/dL Calcium 9.1 (8.4-10.2) mg/dL Magnesium 2.3 (1.6-2.3) mg/dL Total Bilirubin 0.4 (0.2-1.3) mg/dL AST 69 H (17-59) IU/L ALT 95 H (<50) IU/L Alkaline Phosphatase 69 (38-126) U/L Total Creatine Kinase 40 L (55-170) U/L Troponin I 0.165 H* 0.148 H* (0.01-0.034) ng/mL NT-Pro-B Natriuret Pep 5220 H (<450) pg/mL Total Protein 7.2 (6.3-8.2) g/dL Albumin 3.8 (3.5-5.0) g/dL Globulin 3.4 (1.7-4.1) g/dL Albumin/Globulin Ratio 1.1 (1.0-2.8) Lipase 189 (23-300) U/L Imaging Data CT scan - head: Radiologist's Impression: PROCEDURE: CT HEAD/BRAIN WO CON INDICATIONS: GLF, HEAD/NECK PAIN ON ELIQUIS TECHNIQUE: Noncontrast 4.5 mm thick angled axial sections acquired from the foramen magnum to the vertex, with coronal and sagittal reformats. For radiation dose reduction, the following was used: automated exposure control, adjustment of mA and/or kV according to patient size. COMPARISON: None. FINDINGS: Image quality: Diagnostic. CSF spaces: Basal cisterns are patent. No extra-axial fluid collections. The ventricles are symmetric in size and shape. Brain: No intracranial bleeds or masses. There is cerebral volume loss for age, with resultant ventricular and sulcal prominence. There are periventricular and deep white matter chronic small vessel ischemic changes. There is intracranial internal carotid artery atherosclerosis. Skull and face: Calvarium and visualized facial bones appear intact, without suspicious lesions. Sinuses: Sinusitis and postsurgical changes from prior endoscopic sinonasal surgery. Prior right mastoidectomy. The left mastoid air cells clear. IMPRESSION: No acute intracranial pathology. Dictated by: Dallas Otero M.D. on 08/31/2023 at 19:52 Approved by: Dallas Otero M.D. on 08/31/2023 at 19:53 CT - cervical spine: Radiologist's Impression: PROCEDURE: CT CERVICAL SPINE WO CON INDICATIONS: GLF, HEAD/NECK PAIN ON ELIQUIS TECHNIQUE: Noncontrast 3 mm thick sections acquired from the skull base to the T4 level. Sagittal and coronal reformats were then constructed. For radiation dose reduction, the following was used: automated exposure control, adjustment of mA and/or kV according to patient size. COMPARISON: None. FINDINGS: Image quality: Excellent. Bones: No fractures or dislocations. Severe multilevel degenerative changes of the spine. Grade 1 anterolisthesis of C3 on C4. Visualized superior ribs are intact. Soft tissues: Prevertebral soft tissues are normal in thickness. No paravertebral hematomas. No apical pneumothoraces. IMPRESSION: No displaced fracture or traumatic subluxation. Dictated by: Dallas Otero M.D. on 08/31/2023 at 19:54 Approved by: Dallas Otero M.D. on 08/31/2023 at 19:55 Chest x-ray: Radiologist's Impression: PROCEDURE: XR CHEST 1V INDICATIONS: chest pain TECHNIQUE: One view of the chest was acquired. COMPARISON: [facility], , XR CHEST 1V, 05/19/2023, 18:37. FINDINGS: Surgical changes and devices: None. Lungs and pleura: Lungs are clear. No pleural effusions or pneumothorax. Mediastinum: Mediastinal contours appear normal. Heart size is normal. Bones and chest wall: No suspicious bony lesions. Overlying soft tissues appear unremarkable. IMPRESSION: No acute pulmonary process. Dictated by: Rachael Sotomayor M.D. on 08/31/2023 at 21:17 Approved by: Rachael Sotomayor M.D. on 08/31/2023 at 21:17 ECG Data Interpretation: Normal sinus rhythm at 79 beats per minute. Normal [place], no ST T wave changes, no STEMI MDM Narrative Medical decision making narrative: Ground level fall with head injury, mechanical in nature as patient states that he was attempting to use a cane, which he has not used in nearly a year. Complaining of low-grade generalized headache. CT brain and C-spine ordered. Patient reportedly complained to nursing staff that he has had shortness of breath and occasional bandlike tightness across his chest over the last several weeks. Additional laboratory work and chest x-ray imaging ordered. Laboratory work shows WBC count 10.3, hemoglobin 13, platelets 172, sodium 135, potassium 4.5, creatinine 1.11, troponin 0.165, repeat 0.148, BNP 5220. Conversation with patient and had at bedside. Both patient and state that they are uninterested in intensive cardiac workup at this time. Patient had ?clean? catheterization 1 year ago. Patient has poorly tolerated both treadmill and nuclear stress test in the past and patient had a rather traumatic experience at his last heart catheterization. They state that even if cardiology recommended these therapies they would not be interested in pursuing them due to prior experiences. Both patient and state that they would like to try to increase diuretics at home to see if this helps his symptoms. Patient takes 20 mg of Lasix and 25 mg of spironolactone daily. Patient counseled to increase Lasix to 40 mg daily and to continue 25 mg of spironolactone. states that patient has upcoming cardiology follow up within the next 2 weeks. Discharge Plan Departure Patient Disposition: Home Clinical Impression: Dyspnea, Head injury Instructions: DI for Heart Failure Activity Restrictions/Additional Instructions: I recommend increasing Lasix to 40 mg daily. Continue your normal spironolactone dose. Your BNP today was 5220. You did have a mild elevation in your troponin, at 0.165. This is slightly higher than what you have had in the past, but it was stable over 2 different measurements. It is likely related to your volume overload. Your EKG did not show any obvious blockages Prescriptions: No Action diltiazem HCl 120 MG capsule,extended release 24hr 120 mg PO QDAY 30 Days Qty: 0 0RF dabigatran etexilate [Pradaxa] 150 MG capsule 150 mg PO BID 30 Days Qty: 0 0RF Referrals: Nomi Peoples MD [Primary Care Provider] - Stand Alone Forms: Patient Portal/API
[2023-08-31 20:35] LABS: INR 1.5 (0.9-1.3); Prothrombin Time 16.7 SECONDS (9.4-12.5)
[2023-08-31 20:38] LABS: PTT Partial Thromboplastin Tim 29 SECONDS (25.1-36.5)
[2023-08-31 20:40] LABS: Alanine Aminotransferase 95 IU/L (<50); Albumin 3.8 g/dL (3.5-5.0); Albumin Globulin Ratio 1.1 (1.0-2.8); Alkaline Phosphatase 69 U/L (38-126); Aspartate Aminotransferase 69 IU/L (17-59); BUN Creatinine Ratio 50.5 (6-22); Bilirubin Total 0.4 mg/dL (0.2-1.3); Blood Urea Nitrogen 56 mg/dL (9-20); Calcium 9.1 mg/dL (8.4-10.2); Carbon Dioxide 18 mmol/L (22-32); Chloride 109 mmol/L (98-107); Creatine Kinase 40 U/L (55-170); Estimated Glomerular Filt Rate > 60 mL/min (>60); Globulin 3.4 g/dL (1.7-4.1); Glucose 126 mg/dL (80-110); HEMOLYSIS < 15 (0-50); Lipase 189 U/L (23-300); Magnesium 2.3 mg/dL (1.6-2.3); Potassium 4.5 mmol/L (3.4-5.1); Sodium 135 mmol/L (137-145); Total Protein 7.2 g/dL (6.3-8.2)
[2023-08-31 20:51] LABS: NT-proBNP (BNP-Adult 18+) 5220 pg/mL (<450)
[2023-08-31 21:16] LABS: Troponin I 0.165 ng/mL (0.01-0.034)
[2023-08-31 22:50] LABS: Troponin I 0.148 ng/mL (0.01-0.034)
== END 2023-08-31 23:20 | disposition home or self-care (01) ==
PROVIDERS: Emergency Provider Emergency Medicine; Family Provider Family Medicine Sports Medicine; PCP Family Medicine Sports Medicine
DX: S09.90XA Unspecified injury of head, initial encounter (principal); R06.00 Dyspnea, unspecified; R07.9 Chest pain, unspecified; M54.2 Cervicalgia; R51.9 Headache, unspecified; I50.9 Heart failure, unspecified; W18.30XA Fall on same level, unspecified, initial encounter; Z79.01 Long term (current) use of anticoagulants
CPT/HCPCS: 36415; 70450; 71045; 72125; 80053; 82550; 83690; 83735; 83880; 84484; 85025; 85610; 85730; 93005; 99283; 99284